=== PATIENT | female | born 1940 | race Caucasian/White ===

== ENCOUNTER 2024-02-21 09:08 | Inpatient (IN) | payer MEDICARE, SELFPAY ==
[2024-02-20 17:56] VITALS: BP 135/95
[2024-02-20 18:00] VITALS: BP 138/95
[2024-02-20 18:03] VITALS: BMI 22.3
[2024-02-20 18:21] LABS: % Basophils 0.2 % (0-2); % Eosinophils 0.5 % (0-6); % Immature Granulocytes 0.4 % (0-0.5); % Lymphocytes 15.3 % (20.5-51.1); % Monocytes 4.6 % (1.7-9.3); Absolute Lymphocytes 1.3 10^3/uL (1.2-3.4); Absolute Monocytes 0.4 10^3/uL (0.1-0.6); Absolute Neutrophils 6.7 10^3/uL (1.4-6.5); Hematocrit 31.5 % (37.0-47.0); Hemoglobin 10.8 g/dL (12.0-16.0); Mean Corp Hgb Conc. 34.3 g/dL (33.0-37.0); Mean Corpuscular Hgb 29.2 pg (27.0-31.0); Mean Corpuscular Volume 85.1 fL (81.0-99.0); Mean Platelet Volume 8.9 fL (7.4-10.4); Nucleated Red Blood Cells % 0 %; Platelet Count 304 10^3/uL (130-400); Red Cell Dist. Width 15.2 % (11.5-14.5); White Blood Cell Count 8.5 10^3/uL (4.8-10.8)
--- NOTE | 2024-02-20 18:43 | ED.GENMED ---
History of Present Illness
General
Chief Complaint: Fatigue
Source: patient
Exam Limitations: none
Time Seen by Provider: 02/20/24 18:27
History of Present Illness
History of Present Illness:
83-year-old female presents from jail[facility]hab facility for progressively worsening weakness. This has been worsening over the past month. She was initially at her home where she lives with her and was walking independently but
found her self to be falling multiple times. She fell 3 different times and was eventually admitted to [facility]. No specific diagnosis was made for her generalized weakness but she was sent to rehab. Since being at rehab about 2 weeks
ago, she notes that her weakness has gotten worse. She denies fever headache chest pain or shortness of breath. No urinary symptoms. No abdominal pain or vomiting. She does note decreased appetite. She denies any unilateral weakness. No other
complaints at this time
Phy Exam
Physical Exam
Physical Exam:
General: Cachectic appearing female no acute respiratory distress
HEENT: Normal cephalic atraumatic
Heart: Regular rate and rhythm
Lungs: Clear no wheeze
Abdomen is soft nontender nondistended no guarding or rebound
Extremities: No cyanosis or edema
Neurologic exam: Alert no facial asymmetry. Oriented x 3. No unilateral.
Course
Orders/Labs/Results
Orders:
Orders
02/20/24 18:13
Electrocardiogram (*1) Urgent
Reason for Study: Fatigue / Weakness
02/20/24 18:14
EKG- Treatment ONCE
02/20/24 18:16
CMP [Comprehensive Metabolic Panel] Urgent
Complete Blood Count/With Diff Urgent
02/20/24 18:56
Urinalysis Reflex To Culture Urgent
Date Specimen was Collected: 02/20/24
Time Specimen was Collected: 18:53
Urine Microscopic Reflex Cult Urgent
Urine Culture Urgent
RODOLFO Source: U
Specimen Description:
Date Specimen was Collected: 02/20/24
Time Specimen was Collected: 18:53
02/20/24 19:43
CR Chest - 2 Views Urgent
Comment:
Reason For Exam: weakness
02/20/24 20:42
CefTRIAXone [Rocephin] 1,000 mg IV NOW STA
Abnormal Lab Results
02/20/24 02/20/24
18:16 18:56
RBC 3.70 L 10^6/uL
(4.20-5.40)
Hgb 10.8 L g/dL
(12.0-16.0)
Hct 31.5 L %
(37.0-47.0)
RDW 15.2 H %
(11.5-14.5)
Absolute Neuts (auto) 6.7 H 10^3/uL
(1.4-6.5)
Neutrophils % 79.0 H %
(42.2-75.2)
Lymphocytes % 15.3 L %
(20.5-51.1)
Sodium 134 L mmol/L
(135-145)
Creatinine 0.4 L mg/dL
(0.6-1.0)
Calcium 7.9 L mg/dl
(8.4-10.2)
AST 44 H U/L
(14-36)
Total Protein 5.5 L g/dl
(6.3-8.2)
Albumin 1.5 L g/dl
(3.5-5.0)
Urine Nitrite (Reflex) Positive A
(Negative)
Leukocyte Esterase Rfl Trace A
(Negative)
Urine WBC (Reflex) 16-20 A /HPF
(0-5)
Urine Bacteria (Reflex) Moderate A
(Negative)
02/20/24 18:16
02/20/24 18:16
Vital Signs
Initial and Last Documented VS:
Initial Vital Signs
Temp Pulse Resp BP Pulse Ox
97.5 F 97 17 135/95 93
02/20/24 17:56 02/20/24 17:56 02/20/24 17:56 02/20/24 17:56 02/20/24 17:56
Last Documented Vital Signs
Temp Pulse Resp BP Pulse Ox
97.5 F 94 21 138/95 92
02/20/24 17:56 02/20/24 18:45 02/20/24 18:45 02/20/24 18:00 02/20/24 18:45
MDM/Problems Addressed
Differential Diagnosis Includes:
Generalized weakness. Consider anemia versus electrolyte abnormality versus general deconditioning versus volume depletion. No unilateral findings suggest stroke
Will check labs and urine.
*Critical Care Note
Total Time (30-74mins, 75-104mins- exclusive of procedures): Not Applicable
Update Note
Update Note:
Urinalysis nitrite positive with bacteria. Suspect UTI based off urinalysis. Cultures pending. Albumin is 1.5. Patient is here with progressive weakness. This is getting worse since being at rehab facility. Request for records were sent to
outside hospital. Discussed with emergency room attending. Will admit to hospital. Rocephin ordered for UTI
ED Attending Note
-
Portions of this chart may have been created with voice recognition software.� Occasional wrong word or��sound alike� substitutions may have occurred due to the inherent limitations of voice recognition software.
Discharge Plan
Departure
Patient Disposition: Admit
Date of Disposition: 02/20/24
Time of Disposition: 21:02
Admit to: Med/Surg
Presentation/result/management discussed w/ accepting MD/DO: Hospitalist
Discharge Problem:
Acute UTI, Generalized weakness
Referrals:
UNKNOWN - PT DOES,NOT KNOW [Family Provider] -
Interventions
Interventions:
*General Assessment Last Done: 02/20/24 18:04
*Neglect/Abuse Screening Last Done: 02/20/24 18:04
Discharge Date and Time
Print Language: TUNISIAN
[2024-02-20 18:45] LABS: ALT (SGPT) 16 U/L (0-35); AST (SGOT) 44 U/L (14-36); Albumin 1.5 g/dl (3.5-5.0); Alkaline Phosphatase 84 U/L (38-126); Blood Urea Nitrogen 17 mg/dl (7-17); Calcium 7.9 mg/dl (8.4-10.2); Carbon Dioxide 27 mmol/L (22-30); Chloride 104 mmol/L (98-107); Estimated Creatinine Clearance 58 ml/min; Glucose 80 mg/dl (70-99); Potassium 3.8 mmol/L (3.5-5.1); Sodium 134 mmol/L (135-145); Total Bilirubin 0.4 mg/dl (0.2-1.3); Total Protein 5.5 g/dl (6.3-8.2); eGFR > 60.00
[2024-02-20 19:00] VITALS: BP 150/95
[2024-02-20 19:04] LABS: Urine Albumin Trace (Neg - Trace); Urine Bilirubin Negative (Negative); Urine Character Clear (Clear); Urine Color Yellow; Urine Glucose Negative (Negative); Urine Ketone Negative (Negative); Urine Leukocyte Trace (Negative); Urine Nitrite Positive (Negative); Urine Occult Blood Negative (Negative); Urine Specific Gravity 1.015 (<1.030); Urine Urobilinogen Negative (Neg - 1+)
[2024-02-20 19:13] LABS: Urine Bacteria Moderate (Negative); Urine Red Blood Cell 0-2 /HPF (0-2); Urine White Cell 16-20 /HPF (0-5)
[2024-02-20 20:00] VITALS: BP 128/70
[2024-02-20 21:00] VITALS: BP 127/81
[2024-02-20] MEDS: ROCEPHIN 1000 MG IV (21:15)
[2024-02-20 22:00] VITALS: BP 117/69
--- NOTE | 2024-02-20 22:42 | HPS.HSE ---
Addendum entered and electronically signed by Edison Tse MD 02/20/24 23:26:
Received notification from nurse that patient has a wet cough after taking small sips of water. She failed swallow testing. NPO. Check speech and swallow evaluation. COVID testing negative. Possible aspiration pneumonia and will broaden
antibiotics to ceftriaxone/azithromycin.
Original Note:
Family Physician
-
Family Physician: Rich Plascencia, DO
Chief Complaint
-
weakness
History of Present Illness
83-year-old female past medical history of hypothyroidism presenting from [facility] facility for progressively worsening weakness. Weakness has been worsening over the past month.
She was initially at her home where she lives with her and was walking dependently but found herself to be falling multiple times. She fell 3 times and was eventually admitted to [facility]. She states that she had a CT head at that
time that showed superficial scalp bleeding and was recommended to have another CT scan of the head in May. No specific diagnosis was made and she was sent to rehab. Since being admitted to rehab 2 weeks ago she notes that her weakness is
gotten worse.
She does have increased urinary frequency over the past week. Denies any pain with urination. She has also been having loose stools for the past few weeks up to 4 times a day. Does have some rectal discomfort with wiping. She denies fever,
headache, chest pain, shortness of breath, cough. No abdominal pain or vomiting. She does have decreased appetite. She denies any unilateral weakness. Denies any difficulty swallow or pain with swallowing.
Medical History
Past Medical History
Past Medical History: Reports Hypothyroidism
Past Surgical History: Reports None
Social History
Tobacco: Non-smoker
Alcohol: None
Drug: None
Family History
Family History: Not pertinent
Allergies / Home Medications
Allergies reflects when Allergies were last updated in [employer].
Home Medications with original date entered in [employer]
Allergy/Medication List:
Allergies
Allergy/AdvReac Type Severity Reaction Status Date / Time
No Known Allergies Allergy Verified 02/20/24 18:03
Home Medications
acetaminophen 325 mg tablet 650 mg PO Q6HPRN PRN mild pain/temp>100.4 02/20/24
bisacodyl 10 mg rectal suppository (Dulcolax (bisacodyl)) 10 mg ME DAILYPRN PRN constipation 02/20/24
ergocalciferol (vitamin D2) 1,250 mcg (50,000 unit) capsule 1,250 mcg PO FR 02/20/24
levothyroxine 50 mcg tablet 50 mcg PO DAILY 02/20/24
loperamide 2 mg tablet (Imodium A-D) 2 mg PO Q6HPRN PRN diarrhea 02/20/24
pantoprazole 40 mg tablet,delayed release 40 mg PO BID 02/20/24
polyethylene glycol 3350 17 gram oral powder packet (Miralax) 17 g PO DAILYPRN PRN constipation 02/20/24
selenium sulfide 1 % shampoo (Selsun Blue) 1 applic topical MOTH 02/20/24
therapeutic multivitamin 1 tab PO DAILY 02/20/24
Review of Systems
-
History Source: Patient
A 12 point ROS was completed and negative except as noted: Yes
Constitutional: Reports No Symptoms
EENT: Reports No Symptoms
Respiratory: Reports No Symptoms
Cardiac: Reports No Symptoms
Abdomen/GI: Reports No Symptoms
: Reports No Symptoms
Musculoskeletal: Reports No Symptoms
Skin: Reports No Symptoms
Neurological: Reports No Symptoms
Endocrine: Reports No Symptoms
Hematologic/Lymphatic: Reports No Symptoms
Psych: Reports No Symptoms
Physical Exam
Vital Signs
Vital Signs
Temp Pulse Resp BP Pulse Ox
97.5 F 94 30 117/69 92
02/20/24 17:56 02/20/24 22:15 02/20/24 22:15 02/20/24 22:00 02/20/24 22:15
Physical Exam
General: Well Developed, Well Nourished and No Apparent Distress
HEENT: NormoCephalic, Moist mucous membranes and Atraumatic
Respiratory: Clear
Cardiac: S1/S2 and Regular Rhythm; No Murmur or Rub
GI: Soft, Non Tender, Non Distended and Normal Bowel Sounds; No Organomegaly
Rectal: Deferred by Provider
Musculoskeletal: No Clubbing, No Cyanosis and No Edema
Skin: No Rash
Neuro: Nonfocal/grossly intact
Laboratory Results
-
02/20/24 18:16
02/20/24 18:16
Laboratory Results
Total Bilirubin 0.4 mg/dl (0.2-1.3) 02/20/24 18:16
AST 44 U/L (14-36) H 02/20/24 18:16
ALT 16 U/L (0-35) 02/20/24 18:16
Alkaline Phosphatase 84 U/L (38-126) 02/20/24 18:16
Data Reviewed
-
Lab Data: Labs Reviewed by me
Old Records: Reviewed
Impression/Plan
-
IMPRESSION:
PLAN:
# Weakness secondary to UTI/failure to thrive secondary to poor oral intake/malnutrition versus volume loss from loose stools
-severe hypoalbuminemia on labs
-Chest x-ray appears to show right lower lobe infiltrate although no symptoms of pneumonia, report pending
-Check COVID
-check urine culture
-Ceftriaxone
# Loose stools possibly secondary to bowel regimen
-Hold bowel regimen
-Monitor for further loose stools/diarrhea and check stool studies if persistent
Hypothyroidism
-Check TSH
-Continue levothyroxine
GERD
-Continue Protonix
Presumably chronic anemia
-Hemoglobin 10.8
-No prior hemoglobin available
Full code
DVT prophylaxis�heparin
Regular diet
[2024-02-20 23:09] LABS: COVID-19 Antigen Negative (Negative)
[2024-02-21] VITALS: BP 120/69
[2024-02-21 01:11] VITALS: BMI 21.3
--- NOTE | 2024-02-21 01:15 | PTCARENOTE ---
Received pt from ED via stretcher. Pt pulled over onto bed, pt states too weak to bare weight to legs. AAOx3, VSS, no complaints of pain. Oriented to room, call arceo within reach
[2024-02-21 01:17] VITALS: BP 116/66
[2024-02-21] MEDS: ZITHROMAX INFUSION 250 IV (01:40)
[2024-02-21] MEDS: SYNTHROID PO (05:21)
[2024-02-21 06:32] LABS: % Basophils 0.2 % (0-2); % Eosinophils 0.2 % (0-6); % Immature Granulocytes 0.5 % (0-0.5); % Lymphocytes 10.2 % (20.5-51.1); % Monocytes 4.4 % (1.7-9.3); % Neutrophils 84.5 % (42.2-75.2); Absolute Immature Granulocytes 0.1 10^3/uL (0-0.05); Absolute Lymphocytes 1.2 10^3/uL (1.2-3.4); Absolute Monocytes 0.5 10^3/uL (0.1-0.6); Absolute Neutrophils 9.7 10^3/uL (1.4-6.5); Hematocrit 26.9 % (37.0-47.0); Hemoglobin 9.4 g/dL (12.0-16.0); Mean Corp Hgb Conc. 34.9 g/dL (33.0-37.0); Mean Platelet Volume 9.8 fL (7.4-10.4); Nucleated Red Blood Cells % 0 %; Platelet Count 290 10^3/uL (130-400); Red Blood Cell Count 3.24 10^6/uL (4.20-5.40); Red Cell Dist. Width 14.9 % (11.5-14.5); White Blood Cell Count 11.5 10^3/uL (4.8-10.8)
[2024-02-21 07:03] LABS: ALT (SGPT) 15 U/L (0-35); AST (SGOT) 42 U/L (14-36); Albumin 2.1 g/dl (3.5-5.0); Alkaline Phosphatase 82 U/L (38-126); Blood Urea Nitrogen 17 mg/dl (7-17); Calcium 7.8 mg/dl (8.4-10.2); Carbon Dioxide 26 mmol/L (22-30); Chloride 105 mmol/L (98-107); Estimated Creatinine Clearance 58 ml/min; Glucose 52 mg/dl (70-99); Potassium 3.2 mmol/L (3.5-5.1); Sodium 136 mmol/L (135-145); Total Bilirubin 0.3 mg/dl (0.2-1.3); Total Protein 5.2 g/dl (6.3-8.2); eGFR > 60.00
[2024-02-21 07:38] VITALS: BP 117/57
--- NOTE | 2024-02-21 08:32 | PTCARENOTE ---
Vini a critical BS of 52 from the lab, Notified the MD as there is no PRN for hypoglycemia and pt is NPO w/ a speech consult. No response yet from
[2024-02-21] MEDS: HEPARIN 5000 UNITS SC ×2 (08:53→20:58)
[2024-02-21] MEDS: SYNTHROID 50 MCG PO (08:58)
[2024-02-21] MEDS: THERAGRAN PO (09:05)
[2024-02-21] MEDS: PROTONIX PO (09:05)
[2024-02-21 09:09] LABS: Glucose - Point of Care 69 mg/dl (70-99)
--- NOTE | 2024-02-21 09:14 | PTOTSP ---
Dysphagia Evaluation
Patient has an unspecified pharyngeal and/or esophageal dysphagia (i.e., c/o stasis with solids, coughing/belching with thin liquids via straw.) Video swallow study warranted to further assess oral and pharyngeal stages of swallowing and develop
plan.
Patient also with signs of mild dysarthria (i.e., low volume of speech, weak cough, hypernasal, muffled quality) of unknown etiology which she reported was on-going prior to admission. Physician notified.
Recommend:
1. IDDSI Level 4 (puree), IDDSI Level 0 (thin) via CUP
2. Medications - crushed in puree
3. Strategies: supervision, upright to 90 degrees, small single sips/bites, avoid straw, upright for 30 minutes after PO
4. Video swallow study
5. Continued medical work up as to etiology of symptoms above
[2024-02-21] MEDS: DEXTROSE 50% SYRINGE 25 GRAMS IV (09:28)
[2024-02-21 10:00] LABS: Glucose - Point of Care 146 mg/dl (70-99)
[2024-02-21] MEDS: KCL ELIXIR 40 MEQ PO (11:24)
[2024-02-21 11:58] LABS: Iron < 20 ug/dl (37-170)
[2024-02-21 12:00] LABS: Glucose - Point of Care 98 mg/dl (70-99)
[2024-02-21 12:06] LABS: Total Iron Binding Capacity 136 ug/dl (265-497)
[2024-02-21 13:34] VITALS: BMI 21.3
[2024-02-21 15:16] VITALS: BP 105/56
[2024-02-21 15:24] LABS: Glucose - Point of Care 108 mg/dl (70-99)
--- NOTE | 2024-02-21 15:53 | W.PN.HOSP.TC ---
Today's Communication/Plan
-
See plan
Assessment / Plan
Assessment / Plan
Impression:
83 years old female presented with failure to thrive including generalized weakness poor appetite and oral intake progressive weight loss
Suspected UTI
Bilateral right greater than left pleural effusion small to moderate on the right
Suspected aspiration syndrome/pneumonia
Hypokalemia
Loose stools reported on admission.
Conditions prior to admission:
Recent hospitalization to [facility] with unremarkable workup
Hypothyroidism with elevated TSH.
GERD.
Chronic normocytic anemia.
Suspected dementia
Plan:
Failure to thrive with low oral intake, poor appetite, significant malnutrition with BMI of 21.
Patient offers no specific complaint other than generalized fatigue and weakness and poor oral intake.
Will order CT scan of the chest abdomen and pelvis with contrast to evaluate for occult malignancy
Chronic anemia
Stable hemoglobin with no evidence of acute blood loss
Heme check stool.
Check iron/B12 levels
Concern for UTI, abnormal urinalysis, although does not offer specific complaint
Mild leukocytosis at 11.5.
Urinalysis consistent with pyuria
Continue empiric antibiotics pending cultures
Concern for aspiration pneumonia/pneumonitis
Speech and swallow evaluation with no overt aspiration.
Diet has been advanced with aspiration precautions
Will check VSE.
Check CT head to rule out for CVA as a cause for possible aspiration.
Hypothyroidism on replacement with mildly elevated TSH
Increase levothyroxine from 50 to 75 mcg.
Follow-up with [facility] in 6 to 8 weeks.
Physical therapy evaluation
Nutrition consult
Discussed with patient nephew on 02/20.
Anticipated Discharge: > 48 hours
Subjective/Interval History
-
Date of Service: February 21, 2024
Objective Data
-
Labs:
Laboratory Results
02/21/24
05:09
WBC 11.5 H
Hgb 9.4 L
Hct 26.9 L
Plt Count 290
Sodium 136
Potassium 3.2 L
Chloride 105
Carbon Dioxide 26
BUN 17
Creatinine 0.3 L
Glucose 52 L*
Calcium 7.8 L
Total Bilirubin 0.3
AST 42 H
ALT 15
Alkaline Phosphatase 82
Vital Signs:
Vital Signs
Temp Pulse Resp BP Pulse Ox
98.1 F 73 18 105/56 94
02/21/24 15:16 02/21/24 15:16 02/21/24 15:16 02/21/24 15:16 02/21/24 15:16
I&O
02/20/24 02/21/24 02/22/24
06:59 06:59 06:59
Output Total 80 / 80
Balance -80 / -80
Physical Exam
-
General: Well Developed and No Apparent Distress
HEENT: Normocephalic, Atraumatic and Moist Mucous Membranes
Respiratory: Clear to Auscultation
Cardiac: Regular Rhythm and S1/S2; Negative Murmur, Rub or Gallop
GI: Soft, Nontender, Nondistended and Normal Bowel Sounds; Negative Organomegaly
Rectal: Deferred by Provider
Musculoskeletal: No Clubbing, No Cyanosis and No Edema
Skin: Negative Rash
Neuro: Nonfocal/Grossly Intact
--- NOTE | 2024-02-21 16:42 | CM ---
Alert awake patient who is short term at [facility]. Spoke with [facility] he said she can return and she will probably be changed to halfway. She is assisted in all activates of daily living.She said she is non ambulatory and
will need ambulance to return to [facility] at home unsure of [facility] LM with SNF
PCP Dr Plascencia
PLAN Return to [facility] report [phone] fax [phone]
[2024-02-21] MEDS: STERILE WATER FOR INJECTION 10 ML IV (20:57)
[2024-02-21] MEDS: ROCEPHIN 1000 MG IV (20:58)
[2024-02-21] MEDS: PROTONIX 40 MG PO (20:58)
[2024-02-21 23:44] VITALS: BP 111/52
[2024-02-22] MEDS: ZITHROMAX INFUSION 250 IV (02:52)
[2024-02-22 03:05] LABS: Glucose - Point of Care 83 mg/dl (70-99)
[2024-02-22] MEDS: SYNTHROID 75 MCG PO (06:00)
[2024-02-22 07:46] VITALS: BP 101/45
[2024-02-22] MEDS: THERAGRAN PO (08:45)
[2024-02-22] MEDS: PROTONIX PO (08:45)
[2024-02-22] MEDS: HEPARIN 5000 UNITS SC ×2 (08:52→20:57)
[2024-02-22 08:58] LABS: % Basophils 0.1 % (0-2); % Eosinophils 0.8 % (0-6); % Immature Granulocytes 0.7 % (0-0.5); % Lymphocytes 16.5 % (20.5-51.1); % Monocytes 6.6 % (1.7-9.3); % Neutrophils 75.3 % (42.2-75.2); Absolute Eosinophils 0.1 10^3/uL (0-0.7); Absolute Immature Granulocytes 0.1 10^3/uL (0-0.05); Absolute Lymphocytes 1.2 10^3/uL (1.2-3.4); Absolute Monocytes 0.5 10^3/uL (0.1-0.6); Absolute Neutrophils 5.4 10^3/uL (1.4-6.5); Hematocrit 25.6 % (37.0-47.0); Hemoglobin 8.8 g/dL (12.0-16.0); Mean Corp Hgb Conc. 34.4 g/dL (33.0-37.0); Mean Corpuscular Hgb 28.7 pg (27.0-31.0); Mean Corpuscular Volume 83.4 fL (81.0-99.0); Mean Platelet Volume 9.5 fL (7.4-10.4); Nucleated Red Blood Cells % 0 %; Platelet Count 267 10^3/uL (130-400); Red Blood Cell Count 3.07 10^6/uL (4.20-5.40); Red Cell Dist. Width 15.1 % (11.5-14.5); White Blood Cell Count 7.2 10^3/uL (4.8-10.8)
[2024-02-22 10:39] LABS: Blood Urea Nitrogen 18 mg/dl (7-17); Calcium 7.5 mg/dl (8.4-10.2); Carbon Dioxide 27 mmol/L (22-30); Chloride 107 mmol/L (98-107); Estimated Creatinine Clearance 58 ml/min; Glucose 56 mg/dl (70-99); Potassium 3.5 mmol/L (3.5-5.1); Sodium 136 mmol/L (135-145); eGFR > 60.00
[2024-02-22 13:36] VITALS: BP 132/100; BP_SYST 80
[2024-02-22 13:58] VITALS: BP 107/54
--- NOTE | 2024-02-22 14:05 | PN.CDI ---
CDI
- -
CDI:
Physician Documentation Request
Admit Date: 02/21/24 09:08
Dear Doctor Kevyn,
Please review the following and provide your response in the progress notes.
Clinical Indicators:
PN, 02/20
#Failure to thrive with low oral intake, poor appetite,
#...significant malnutrition with BMI of 21.
Government Professor, 02/20
#CBW: 120 lbs 6.4 oz BMI 21.3 normal range 02/20.
#...During visit RD able to visulize protrusion of clavical, apparent ribs, quad
#...and calf muscle wasting, muscle loss over Interosseous,
#...temporal area sunken in, orbital area sunken in.
#With observed muscle and fat wasting pt meets
#...AND/ASPEN criteria for moderate protein calorie malnutrition of chronic illness.
Based on the above and your clinical assessment, please provide additional specificity regarding the severity of the malnutrition:
Moderate Protein Calorie Malnutrition of chronic illness
Malnutrition
Other (please specify)
Huger Criteria (ACP Hospitalist 2017)
2 or more criteria must be present for either
non severe or severe malnutrition
Note that the criteria differs related to the
presence of an acute or chronic illness
Chronic Illness
Energy Intake Non Severe: <75% for >1 month
Severe: <75% for >1 month
Weight Loss Non Severe: 5% over 1 month
7.5% over 3 months
10% over 6 months
20% over 1 year
Severe: >5% over 1 month
>7.5% over 3 months
>10% over 6 months
>20% over 1 year
Body Fat Non Severe: Mild Loss
Severe: Severe Loss
Muscle Mass Non Severe: Mild Loss
Severe: Severe Loss
Use of terms such as suspected, likely, concern for, or probable (associated with a specific diagnosis that is being evaluated, monitored, or treated as if it exists) are acceptable and can be coded in the inpatient setting, when documented at the
time of discharge.
Thank you,
Anisha Mcconnell RN BSN CCDS
CDI Specialist
please contact via tiger text
Please use your independent medical judgment in providing your response.
--- NOTE | 2024-02-22 14:11 | PN.CDI ---
CDI
- -
CDI:
Physician Documentation Request
Admit Date: 02/21/24 09:08
Dear Doctor Kevyn,
Please review the following and provide your response in the progress notes.
Clinical Indicators:
Selected Entries
02/21/24
01:55
Pressure injury stage [Present on admission Sacrum] Stage 3
Duplicate Maker, 02/20
#Skin: stage 3 sacrum.
Physician documentation of the type and location of wounds is required for compliant documentation. Based on the above clinical findings and your assessment, please provide the following in your progress note:
Yes, stage 3 sacrum pressure injury, POA
No, stage 3 pressure injury
Other(please specify)
1. Location of the ulcer/wound, including laterality.
2. Type (etiology) of ulcer/wound:
- Diabetic ulcer
- Arterial (ischemic) ulcer
- Traumatic wound
- Venous stasis ulcer
- Pressure (decubitus) ulcer
- Non-healing surgical wound
3. If a pressure ulcer, please also include the stage* of the ulcer:
- Stage 1 - Skin intact, non-blanchable redness
- Stage 2 - Partial thickness loss of dermis, includes intact or open blister
- Stage 3 - Full thickness tissue not including bone, tendon or muscle
- Stage 4 - Full thickness tissue loss, including exposed bone, tendon or muscle
Use of terms such as suspected, likely, concern for, or probable (associated with a specific diagnosis that is being evaluated, monitored, or treated as if it exists) are acceptable and can be coded in the inpatient setting, when documented at the
time of discharge.
Thank you,
Anisha Mcconnell RN BSN CCDS
CDI Specialist
please contact viat tiger text
Please use your independent medical judgment in providing your response.
*Source: National Pressure Ulcer Advisory Panel (NPUAP)
[2024-02-22 14:18] LABS: Body Fluid pH 7.48
[2024-02-22 14:20] LABS: Body Fluid Mononuclear 87.9 %; Body Fluid Polymorphonuclear 12.1 %; Body Fluid WBC 132 /CUMM
--- NOTE | 2024-02-22 14:25 | CON.GI ---
Medical History
Chief Complaint / HPI
Chief Complaint: Generalized weakness
History of Present Illness:
Patient is a 83-year-old female with past medical history of hypothyroidism presenting from [facility] with progressive weakness. Patient mentions dysphagia starting few months ago which is both to solids and liquids. She feels as if food gets stuck in
midesophagus. She has had decreased appetite and oral intake during past months but has not noticed significant weight loss. Mentions early satiety. Also complains of loose stools for the past 1-2 months, sometimes up to 6 times a day. Thinks she
has seen bright red blood in stool 1 or 2 times about 2 to 3 weeks ago. She does feel lightheaded since 2 to 3 weeks ago and has fell a couple of times during the past month.
Denies any abd pain, nausea, vomiting, fever/chills, hematemesis and melena. Denies chest pain or shortness of breath. Has occasional heartburn but does not take any medications for it. Patient has noticed increased urinary frequency during the
past week but no hematuria. Prior to coming to , she was admitted to [facility] for a week due to weakness and falls, and also another week at [facility], which workup was inconclusive.
Past Medical History
Past Medical History: Hypothyroidism
Past Surgical History: None
Social History
Tobacco: Non-Smoker
Alcohol: None
Drug: None
Family History
Family History: Reviewed & Not Pertinent
Allergies / Home Medications
Allergy/AdvReac Type Severity Reaction Status Date / Time
No Known Allergies Allergy Verified 02/20/24 18:03
�Medication �Instructions �Recorded
acetaminophen 325 mg tablet 650 mg PO Q6HPRN PRN mild 02/20/24
pain/temp>100.4
bisacodyl 10 mg rectal suppository 10 mg KS DAILYPRN PRN constipation 02/20/24
(Dulcolax (bisacodyl))
ergocalciferol (vitamin D2) 1,250 1,250 mcg PO FR Supplement 02/20/24
mcg (50,000 unit) capsule
levothyroxine 50 mcg tablet 50 mcg PO DAILY Thyroid 02/20/24
loperamide 2 mg tablet (Imodium 2 mg PO Q6HPRN PRN diarrhea 02/20/24
A-D)
pantoprazole 40 mg tablet,delayed 40 mg PO BID Gastrointestinal Issue 02/20/24
release
polyethylene glycol 3350 17 gram 17 g PO DAILYPRN PRN constipation 02/20/24
oral powder packet (Miralax)
selenium sulfide 1 % shampoo 1 applic topical MOTH Skin Issues 02/20/24
(Selsun Blue)
therapeutic multivitamin 1 tab PO DAILY Supplement 02/20/24
Review of Systems
-
History Source: Patient
Constitutional: Reports Fatigue
EENT: Reports Other (Difficulty swallowing)
Abdomen/GI: Reports Diarrhea and Anorexia; Denies Abdominal Pain, Nausea or Vomiting
: Reports Frequency
Neurological: Reports Other (Lightheadedness)
Vital Signs
Temp Pulse Resp BP Pulse Ox
97.7 F 78 16 107/54 93
02/22/24 13:36 02/22/24 13:58 02/22/24 13:58 02/22/24 13:58 02/22/24 13:36
Physical Exam
Exam
General: No Apparent Distress, Poor Appetite and Other (Appears malnourished)
HEENT: Anicteric
Respiratory: Clear
Cardiac: S1/S2 and Regular Rhythm
GI: Soft, Non Tender, Non Distended and Normal Bowel Sounds
Skin: Warm and Dry
Neuro: Awake, Alert, Oriented and AO x 3
Results
WBC 7.2 10^3/uL (4.8-10.8) 02/22/24 07:46
Hgb 8.8 g/dL (12.0-16.0) L 02/22/24 07:46
Hct 25.6 % (37.0-47.0) L 02/22/24 07:46
MCV 83.4 fL (81.0-99.0) 02/22/24 07:46
Plt Count 267 10^3/uL (130-400) 02/22/24 07:46
Absolute Neuts (auto) 5.4 10^3/uL (1.4-6.5) 02/22/24 07:46
Sodium 136 mmol/L (135-145) 02/22/24 07:47
Potassium 3.5 mmol/L (3.5-5.1) 02/22/24 07:47
Chloride 107 mmol/L (98-107) 02/22/24 07:47
Carbon Dioxide 27 mmol/L (22-30) 02/22/24 07:47
BUN 18 mg/dl (7-17) H 02/22/24 07:47
Creatinine 0.4 mg/dL (0.6-1.0) L 02/22/24 07:47
Calcium 7.5 mg/dl (8.4-10.2) L 02/22/24 07:47
Total Bilirubin 0.3 mg/dl (0.2-1.3) 02/21/24 05:09
AST 42 U/L (14-36) H 02/21/24 05:09
ALT 15 U/L (0-35) 02/21/24 05:09
Alkaline Phosphatase 82 U/L (38-126) 02/21/24 05:09
Diagnostic Image Results:
There is severe diffuse subcutaneous edema throughout the chest abdomen and pelvis.
Moderate right pleural effusion and small left pleural effusion. Adjacent dependent atelectasis in the posterior lungs.
Large amount of ascites throughout the abdomen and pelvis.
Suggestion of increased enhancement and slight thickening of bowel loops diffusely, likely on the basis of diffuse surrounding edema/ascites, although there could also be a component of enteritis. No convincing evidence for bowel obstruction. No
evidence of free intraperitoneal air.
Prior GI Procedures:
EGD:
Colonoscopy:
Assessment / Plan
-
Patient is a 83-year-old female with past medical history of hypothyroidism presenting from SNF with progressive weakness, difficulty swallowing and diarrhea for the past few months. Last bowel movement was last night which was loose.
CT shows large amount of ascites throughout the abdomen and pelvis and increased enhancement and slight thickening of bowel loops diffusely. Also had pleural effusion. Thoracentesis was done today yielding 500 cc of clear yellow pleural fluid .
Patient denies any history of cardiac or renal diseases. Echo will be done today to check for possible CHF.
#Recommendations
Hemoglobin has dropped from 10.8 to 8.8 during the past 24 hours. Patient is hemodynamically stable at this time.
Paracentesis and fluid studies ordered.
Heme stool already ordered
VSE ordered by primary team
Will review with Dr. Perez regarding possible endo/colonoscopy
Will check INR
Continue to monitor h/h and vital signs for any acute worsening
-
-
Thank you for consultation and allowing me to participate in the patient's care. Please call the implementation consultant GI physician during the after hours with any questions or concerns.
[2024-02-22 14:29] LABS: Body Fluid Second Tech RLT
[2024-02-22 14:30] LABS: Body Fluid Albumin < 1.0 g/dl; Body Fluid LDH 103 U/L; Body Fluid Protein 2.2 g/dl
--- NOTE | 2024-02-22 15:11 | W.PN.HOSP.TC ---
Today's Communication/Plan
-
Diagnostic and therapeutic thoracentesis
Wean off oxygen.
GI evaluation for delayed esophageal passage as well as chronic anemia, anasarca/ascites.
Echocardiogram.
Continue antibiotics
Physical therapy evaluation
Assessment / Plan
Assessment / Plan
Impression:
83 years old female presented with failure to thrive including generalized weakness poor appetite and oral intake progressive weight loss
UTI
Bilateral right greater than left pleural effusion small to moderate on the right
Aspiration pneumonitis, less likely pneumonia
� Aspiration syndrome with silent aspiration VSE confirmed
Right pleural effusion.
�Status post right thoracentesis 02/21: 500 mL transudate
Anasarca (peripheral edema, right pleural effusion, ascites)
Hypokalemia
Conditions prior to admission:
Recent hospitalization to [facility] with unremarkable workup
Hypothyroidism with elevated TSH.
GERD.
Chronic normocytic anemia.
Suspected dementia
Plan:
Failure to thrive with low oral intake, poor appetite, significant malnutrition with BMI of 21.
Patient offers no specific complaint other than generalized fatigue and weakness and poor oral intake.
Aspiration syndrome with silent aspiration confirmed by bedside evaluation as well as VSE.
VSE with delayed esophageal phase.
Consult gastroenterology for further evaluation.
Follow-up chest x-ray after right thoracentesis with no evidence of infiltrate
Anasarca including peripheral edema, right pleural effusion (transudate), ascites with imaging.
CT scan of the chest abdomen and pelvis with no evidence of occult malignancy.
Further workup including diagnostic paracentesis
Follow cytology from right pleural effusion and paracentesis
Echocardiogram
Pro CHF BNP
Chronic anemia
Hemoglobin trending down with no evidence of acute blood loss
Iron studies consistent with mixed picture of iron deficiency and chronic inflammation
Heme check stool.
UTI without sepsis
Mild leukocytosis at 11.5.
Urinalysis consistent with pyuria
Urine culture with E. coli, sensitive
Antibiotics consolidated to Unasyn to cover UTI as well as possible aspiration pneumonia.
Hypothyroidism on replacement with mildly elevated TSH
Increase levothyroxine from 50 to 75 mcg.
Follow-up with TFT in 6 to 8 weeks.
Physical therapy evaluation
Nutrition consult
Discussed with patient nephew on 02/20.
Anticipated Discharge: > 48 hours
Subjective/Interval History
-
Date of Service: February 22, 2024
Objective Data
-
Labs:
Laboratory Results
02/22/24 02/22/24
07:46 07:47
WBC 7.2
Hgb 8.8 L
Hct 25.6 L
Plt Count 267
Sodium 136
Potassium 3.5
Chloride 107
Carbon Dioxide 27
BUN 18 H
Creatinine 0.4 L
Glucose 56 L
Calcium 7.5 L
Vital Signs:
Vital Signs
Temp Pulse Resp BP Pulse Ox
97.7 F 78 16 107/54 93
02/22/24 13:36 02/22/24 13:58 02/22/24 13:58 02/22/24 13:58 02/22/24 13:36
I&O
02/21/24 02/22/24 02/23/24
06:59 06:59 06:59
Intake Total 480 / 480
Output Total 80 / 80
Balance -80 / -80 480 / 480
Physical Exam
-
General: Well Developed and No Apparent Distress
HEENT: Normocephalic, Atraumatic and Moist Mucous Membranes
Respiratory: Clear to Auscultation
Cardiac: Regular Rhythm and S1/S2; Negative Murmur, Rub or Gallop
GI: Soft, Nontender, Nondistended and Normal Bowel Sounds; Negative Organomegaly
Rectal: Deferred by Provider
Musculoskeletal: No Clubbing, No Cyanosis and No Edema
Skin: Negative Rash
Neuro: Nonfocal/Grossly Intact
--- NOTE | 2024-02-22 15:42 | PTOTSP ---
Video Swallow Study
Summary: Patient with WFL-mild oral stage and moderate pharyngeal stage of swallowing. There was penetration with thin and mildly thick liquids and silent aspiration with thin liquids via cup with a cued chin tuck. Retention was noted in pharynx
(at most moderate-severe), worst with solids, and greatest on the base of tongue. Esophageal sweep revealed retained contrast after a liquid wash. Etiology of dysphagia is unknown.
Recommend:
1. IDDSI Level 4 (Puree), IDDSI Level 0 (Thin Liquids) via cup
2. Medications - crushed in puree if medically cleared to do so
3. Strategies: upright to 90 degrees, small single sips/bites, avoid straw, alternate bites with sips of liquids, multiple swallows (to clear food from throat), intermittent cough/swallow (to clear voice box)
4. Oral care 3x daily
5. Dysphagia therapy at the acute care level and after D/C.
6. Consider GI consult to further assess esophageal stage. (Patient may be at risk to aspirate liquid contrast with rapid ingestion based on this study.)
7. Continued medical work up as to etiology of dysphagia.
[2024-02-22 16:01] LABS: NT-proBNP 1680 pg/ml
[2024-02-22 16:12] VITALS: BP 104/67
[2024-02-22] MEDS: STERILE WATER FOR INJECTION 10 ML IV (20:57)
[2024-02-22] MEDS: ROCEPHIN 1000 MG IV (20:57)
[2024-02-22] MEDS: PROTONIX 40 MG PO (20:58)
[2024-02-22 23:07] VITALS: BP 116/72
[2024-02-23] VITALS (13 sets, daily range): BP systolic 82–142; BP diastolic 47–70; PULSE 70; O2SAT 99
[2024-02-23] MEDS: SYNTHROID PO (05:55)
[2024-02-23 06:16] LABS: PT 15.3 Sec (11.4-14.6)
[2024-02-23 06:19] LABS: % Basophils 0.3 % (0-2); % Eosinophils 0.9 % (0-6); % Immature Granulocytes 0.4 % (0-0.5); % Lymphocytes 16.8 % (20.5-51.1); % Monocytes 6.1 % (1.7-9.3); % Neutrophils 75.5 % (42.2-75.2); Absolute Eosinophils 0.1 10^3/uL (0-0.7); Absolute Lymphocytes 1.2 10^3/uL (1.2-3.4); Absolute Monocytes 0.4 10^3/uL (0.1-0.6); Absolute Neutrophils 5.3 10^3/uL (1.4-6.5); Hematocrit 26.2 % (37.0-47.0); Mean Corp Hgb Conc. 34.4 g/dL (33.0-37.0); Mean Corpuscular Hgb 29.5 pg (27.0-31.0); Mean Corpuscular Volume 85.9 fL (81.0-99.0); Mean Platelet Volume 9.6 fL (7.4-10.4); Nucleated Red Blood Cells % 0 %; Platelet Count 246 10^3/uL (130-400); Red Blood Cell Count 3.05 10^6/uL (4.20-5.40); Red Cell Dist. Width 15.2 % (11.5-14.5)
[2024-02-23] MEDS: PROTONIX PO (08:15)
[2024-02-23] MEDS: HEPARIN 5000 UNITS SC ×2 (08:15→19:43)
[2024-02-23] MEDS: THERAGRAN PO (08:15)
--- NOTE | 2024-02-23 09:54 | W.PN.GI.CBS2 ---
Today's Communication / Plan
-
Endoscopy
Assessment / Plan
-
Patient is a 83-year-old female with past medical history of hypothyroidism presenting from [facility] with progressive weakness, difficulty swallowing and diarrhea for the past few months.
CT shows large amount of ascites throughout the abdomen and pelvis and increased enhancement and slight thickening of bowel loops diffusely. Also had pleural effusion. Thoracentesis was done today yielding 500 cc of clear yellow fluid. Pleural
fluid gram stain negative. Patient denies any history of cardiac or renal diseases. Echo shows EF of 66%. VSE yesterday showed midesophageal retention and aspiration to thin liquids.
Patient is hemodynamically stable at this time.
Paracentesis done this a.m. Awaiting fluid studies to calculate SAAG.
Endoscopy to be done today.
Last bowel movement this am. Non-bloody.
Hgb slightly uptrended this am. Continue to monitor h/h and vital signs for any acute worsening
Subjective
Subjective
Date of Service: February 23, 2024
Objective
Data Reviewed
Laboratory Data:
Laboratory Results
02/23/24 05:33
02/22/24 07:47
Laboratory Results
PT 15.3 Sec (11.4-14.6) H 02/23/24 05:33
INR 1.20 02/23/24 05:33
Total Bilirubin 0.3 mg/dl (0.2-1.3) 02/21/24 05:09
AST 42 U/L (14-36) H 02/21/24 05:09
ALT 15 U/L (0-35) 02/21/24 05:09
Alkaline Phosphatase 82 U/L (38-126) 02/21/24 05:09
Vital Signs and I&O:
Vital Signs
Temp Pulse Resp BP Pulse Ox
98.4 F 82 16 113/68 98
02/23/24 07:26 02/23/24 08:50 02/23/24 08:50 02/23/24 08:50 02/23/24 08:50
I&O
02/22/24 02/23/24 02/24/24
06:59 06:59 06:59
Intake Total 480 / 480
Balance 480 / 480
Physical Exam
Physical Exam
HEENT: Anicteric
Cardiology: Normal Sinus Rhythm, S1 and S2
Pulmonary: Clear
GI: Soft, Distended, Non Tender and Other
Extremities: No Edema
[2024-02-23 10:36] LABS: Body Fluid Albumin 1.2 g/dl
--- NOTE | 2024-02-23 10:48 | PTCARENOTE ---
pt back from [facility] s/p Paracentesis. pt is AAO*3, Vss, room air. pt with band-aid on RLQ. call arceo within the reach. plan of care ongoing.
[2024-02-23 10:54] LABS: Body Fluid Mononuclear 89.1 %; Body Fluid Polymorphonuclear 10.9 %; Body Fluid WBC 332 /CUMM
[2024-02-23 11:17] LABS: Glucose - Point of Care 60 mg/dl (70-99)
[2024-02-23 11:18] LABS: Body Fluid Second Tech AMA
[2024-02-23 11:59] LABS: Glucose - Point of Care 127 mg/dl (70-99)
--- NOTE | 2024-02-23 12:04 | W.PN.UPDATE ---
Update Note
Progress Note Update
Patient had Glucose level of 60 pre EGD gave an amp of D 50, spoke to Dr. Donaldson he will switch her IVF to D 1/2 NSS, poor PO intake. also will get US with dopplers for new onset ascites and r/o cirrhosis
--- NOTE | 2024-02-23 13:09 | PTCARENOTE ---
pt back from GI lab s/p EGD. pt is AAO*3, Vss, 2L o2. pt is back on diet, pt is oriented to the room. call arceo within the reach, plan of care ongoing
--- NOTE | 2024-02-23 17:17 | W.PN.HOSP.TC ---
Today's Communication/Plan
-
Advance diet
Monitor for recurrent hypoglycemia.
Continue PPI
Continue antibiotics covering aspiration and UTI.
Physical therapy evaluation
Abdominal ultrasound with Doppler
Assessment / Plan
Assessment / Plan
Impression:
83 years old female presented with failure to thrive including generalized weakness poor appetite and oral intake progressive weight loss
UTI
Bilateral right greater than left pleural effusion small to moderate on the right
Aspiration pneumonitis, less likely pneumonia
� Aspiration syndrome with silent aspiration VSE confirmed
Right pleural effusion.
�Status post right thoracentesis 02/21: 500 mL transudate
Anasarca (peripheral edema, right pleural effusion, ascites)
Hypokalemia
Duodenal ulcers
Conditions prior to admission:
Recent hospitalization to [facility] with unremarkable workup
Hypothyroidism with elevated TSH.
GERD.
Chronic normocytic anemia.
Suspected dementia
Plan:
Failure to thrive with low oral intake, poor appetite, significant malnutrition with BMI of 21.
Patient offers no specific complaint other than generalized fatigue and weakness and poor oral intake.
Aspiration syndrome with silent aspiration confirmed by bedside evaluation as well as VSE.
VSE with delayed esophageal phase.
Consult gastroenterology for further evaluation.
Follow-up chest x-ray after right thoracentesis with no evidence of infiltrate
Further workup with EGD on 02/22 revealing multiple duodenal ulcers.
Continue PPI
ZEL? As outpatient, will need further workup with gastrin level, chromogranin A advanced hold PPI for 2 weeks.
Also noted with recurrent hypoglycemia.
Monitor oral intake. If with reasonable oral intake and recurrent hypoglycemia we will need workup for insulinoma as outpatient.
Chronic anemia
Hemoglobin trending down with no evidence of acute blood loss
Iron studies consistent with mixed picture of iron deficiency and chronic inflammation
Anasarca including peripheral edema, right pleural effusion (transudate), ascites with imaging.
CT scan of the chest abdomen and pelvis with no evidence of occult malignancy.
Diagnostic paracentesis 02/22 30cc SAAG 0.9. Lean away from portal hypertension or CHF. Check KIMMY
Follow cytology from right pleural effusion and paracentesis
Check abdominal ultrasound with Doppler for hepatic echotexture and further workup for ascites/portal hypertension.
Echocardiogram with preserved biventricular function, mild pulmonary hypertension could not explain ascites
Elevated pro CHF BNP, although no clinical evidence of decompensated CHF
UTI without sepsis
Mild leukocytosis at 11.5.
Urinalysis consistent with pyuria
Urine culture with E. coli, sensitive
Antibiotics consolidated to Unasyn to cover UTI as well as possible aspiration pneumonia.
Hypothyroidism on replacement with mildly elevated TSH
Increase levothyroxine from 50 to 75 mcg.
Follow-up with TFT in 6 to 8 weeks.
Physical therapy evaluation
Nutrition consult
Discussed with patient nephew on 02/20.
Anticipated Discharge: 24 - 48 hours
Subjective/Interval History
-
Date of Service: February 23, 2024
Objective Data
-
Labs:
Laboratory Results
02/23/24
05:33
WBC 7.0
Hgb 9.0 L
Hct 26.2 L
Plt Count 246
PT 15.3 H
INR 1.20
Vital Signs:
Vital Signs
Temp Pulse Resp BP Pulse Ox
98.7 F 69 20 142/70 99
02/23/24 14:49 02/23/24 14:49 02/23/24 14:49 02/23/24 14:49 02/23/24 14:49
I&O
02/22/24 02/23/24 02/24/24
06:59 06:59 06:59
Intake Total 480 / 480
Balance 480 / 480
Physical Exam
-
General: Well Developed and No Apparent Distress
HEENT: Normocephalic, Atraumatic and Moist Mucous Membranes
Respiratory: Clear to Auscultation
Cardiac: Regular Rhythm and S1/S2; Negative Murmur, Rub or Gallop
GI: Soft, Nontender, Nondistended and Normal Bowel Sounds; Negative Organomegaly
Rectal: Deferred by Provider
Musculoskeletal: No Clubbing, No Cyanosis and No Edema
Skin: Negative Rash
Neuro: Nonfocal/Grossly Intact
[2024-02-23] MEDS: STERILE WATER FOR INJECTION 10 ML IV (19:42)
[2024-02-23] MEDS: PROTONIX 40 MG PO (19:43)
[2024-02-23] MEDS: ROCEPHIN 1000 MG IV (19:43)
[2024-02-24] MEDS: SYNTHROID PO (06:01)
[2024-02-24 07:00] VITALS: BP 108/62
[2024-02-24 08:12] LABS: % Basophils 0.1 % (0-2); % Immature Granulocytes 0.7 % (0-0.5); % Lymphocytes 15.5 % (20.5-51.1); % Monocytes 6.4 % (1.7-9.3); % Neutrophils 76.3 % (42.2-75.2); Absolute Eosinophils 0.1 10^3/uL (0-0.7); Absolute Immature Granulocytes 0.1 10^3/uL (0-0.05); Absolute Monocytes 0.4 10^3/uL (0.1-0.6); Absolute Neutrophils 5.1 10^3/uL (1.4-6.5); Hematocrit 28.5 % (37.0-47.0); Hemoglobin 9.6 g/dL (12.0-16.0); Mean Corp Hgb Conc. 33.7 g/dL (33.0-37.0); Mean Corpuscular Hgb 28.7 pg (27.0-31.0); Mean Corpuscular Volume 85.1 fL (81.0-99.0); Mean Platelet Volume 9.3 fL (7.4-10.4); Nucleated Red Blood Cells % 0 %; Platelet Count 233 10^3/uL (130-400); Red Blood Cell Count 3.35 10^6/uL (4.20-5.40); Red Cell Dist. Width 15.5 % (11.5-14.5); White Blood Cell Count 6.7 10^3/uL (4.8-10.8)
--- NOTE | 2024-02-24 08:24 | WOUNDNOTE ---
WOC RN note: Patient admitted with UTI, weakness, failure to thrive, diarrhea, anasarca. s/p Thoracentesis 02/22/24. Patient admitted from SN[facility] rehab. She stated she has an air mattress at [facility]. She is .
See H&P for complete history.
PMH: falls, recent hospital stay at another hospital, hypothyroid, duodenal ulcers.
Wound Location and type/assessment: Patient admitted with: unstageable sacral pressure injury (stage 3 or 4) with yellow slough cover and local erythema. Heels blanchable mild red. Perineum MASD d/t diarrhea. Elbows blanchable mild red.
R lateral ankle with small dry pink stage 2 pressure injury. L lateral ankle blanchable persistent red.
Appetite: poor.
Pressure redistribution devices in place: Waffle air overlay. Patient assists with turning. Air chair cushion.
Plan: Patient incontinent of large loose brown stool. Jennifer care given and patient turned to L semi side lying position with help from MICHELLE Martinez. Sacral dressing changed. Protective foam applied to lateral ankles and heels. Heels off bed with air
chair cushion. Patient at risk of poor wound healing and potential for additional skin breakdown despite pressure injury prevention measures in place d/t overall medical condition, poor nutrition.
Will confirm orders with Dr. Bagley.
Care plan to be updated and will follow as needed. This movie writer is away next week, call CAITY White RN or CLAY Alamo RN if needed.
Recommend follow up at wound care center upon discharge.
[2024-02-24 08:38] LABS: Blood Urea Nitrogen 16 mg/dl (7-17); Calcium 7.7 mg/dl (8.4-10.2); Carbon Dioxide 25 mmol/L (22-30); Chloride 105 mmol/L (98-107); Estimated Creatinine Clearance 58 ml/min; Glucose 101 mg/dl (70-99); Potassium 3.2 mmol/L (3.5-5.1); Sodium 136 mmol/L (135-145); eGFR > 60.00
[2024-02-24 08:50] VITALS: BP 108/62; PULSE 78; O2SAT 93
--- NOTE | 2024-02-24 09:11 | PN.CDI ---
CDI
- -
CDI:
Physician Documentation Request
Admit Date: 02/21/24 09:08
Dear Doctor Chris,
Please review the following and provide your response in the progress notes.
Clinical Indicators:
EGD, 02/22
#Five non-bleeding duodenal ulcers with no stigmata of bleeding were
found in the first portion of the duodenum and in the second portion of
the duodenum. The largest lesion was 10 mm in largest dimension.
Please clarify which of the following accurately represents the likely acuity of the duodenal ulcers:
Acute
Acute on chronic
Chronic
Other
Use of terms such as suspected, likely, concern for, or probable (associated with a specific diagnosis that is being evaluated, monitored, or treated as if it exists) are acceptable and can be coded in the inpatient setting, when documented at the
time of discharge.
Thank you,
Anisha Mcconnell RN BSN CCDS
CDI Specialist
Please contact via tiger text
Please use your independent medical judgment in providing your response.
[2024-02-24] MEDS: HEPARIN 5000 UNITS SC ×2 (09:44→20:35)
[2024-02-24] MEDS: PROTONIX 40 MG PO ×2 (09:44→20:35)
[2024-02-24] MEDS: THERAGRAN 1 TABLET PO (09:44)
[2024-02-24] MEDS: DRISDOL (VITAMIN D2) 50000 UNITS PO (09:46)
[2024-02-24] MEDS: DESENEX/MITRAZOL/ZEASORB 1 APPLIC TOPICAL ×2 (10:01→20:36)
[2024-02-24] MEDS: KCL ELIXIR 40 MEQ PO (11:31)
--- NOTE | 2024-02-24 13:32 | W.PN.GI.CBS2 ---
Today's Communication / Plan
-
Continue diet as per speech with aspiration precaution
Continue PPI twice daily
Assessment / Plan
-
Impression
-- Failure to thrive/weight loss/oropharyngeal dysphagia
-- Multiple duodenal ulcer on EGD
-- Ascites
-- Pleural effusion
-- Anemia
-- Hypothyroidism
CT abd/ pel/ chest 02/20
IMPRESSION: There is severe diffuse subcutaneous edema throughout the chest abdomen and pelvis.
Moderate right pleural effusion and small left pleural effusion. Adjacent dependent atelectasis in the posterior lungs.
Large amount of ascites throughout the abdomen and pelvis.
Suggestion of increased enhancement and slight thickening of bowel loops diffusely, likely on the basis of diffuse surrounding edema/ascites, although there could also be a component of enteritis. No convincing evidence for bowel obstruction. No
evidence of free intraperitoneal air.
EGD 02/22
Impression: - Tortuous esophagus.
- Non-obstructing Schatzki ring.
- Small hiatal hernia.
- A single gastric polyp. Biopsied.
- Erythematous duodenopathy. Biopsied.
- Non-bleeding multiple duodenal ulcers with no
stigmata of bleeding. Biopsied.
- Biopsies were taken with a cold forceps for
Helicobacter pylori testing.
US abd with doppler 02/22
IMPRESSION:
Diminutive size of the liver, however it is otherwise morphologically normal without surface nodularity. No focal hepatic lesion. Hepatic veins demonstrate monophasic waveforms typically seen in the setting of cirrhosis.
Gallbladder sludge without sonographic evidence of acute cholecystitis.
Ascites and bilateral pleural effusions, better visualized on CT from 02/21/2024.
paracentesis - 50 cc fluid removed. Fluid analysis-SAAG < 1.1 high protein . neg SBP. cytology- no malignancy
plan
Initial CT abdomen/pelvis/chest imaging does not reveal any malignancy. Pancreas was normal. Noted to have multiple ulcers in EGD. Ultrasound abdomen with Doppler-possible liver cirrhosis based on hepatic vein waveforms. Patent portal veins.
Platelets normal. Liver test mildly elevated AST/low albumin. Normal ALT/alkaline phosphatase total bilirubin. Ascitic fluid analysis low SAG/high protein not compatible with portal hypertension. Fluid cytology negative for malignancy. Awaiting
echo
Continue diet as per speech with aspiration precaution
Continue PPI twice daily
If hypoglycemia persist further workup as per medical team
Total Time Spent with Patient (in minutes): 35
Subjective
Subjective
Date of Service: February 24, 2024
Denies any abdominal pain/nausea/vomiting. Tolerating diet
Objective
Data Reviewed
Laboratory Data:
Laboratory Results
02/24/24 07:46
02/24/24 07:46
Laboratory Results
PT 15.3 Sec (11.4-14.6) H 02/23/24 05:33
INR 1.20 02/23/24 05:33
Total Bilirubin 0.3 mg/dl (0.2-1.3) 02/21/24 05:09
AST 42 U/L (14-36) H 02/21/24 05:09
ALT 15 U/L (0-35) 02/21/24 05:09
Alkaline Phosphatase 82 U/L (38-126) 02/21/24 05:09
Vital Signs and I&O:
Vital Signs
Temp Pulse Resp BP Pulse Ox
97.5 F 78 20 108/62 93
02/24/24 07:00 02/24/24 07:00 02/24/24 07:00 02/24/24 07:00 02/24/24 07:00
I&O
02/23/24 02/24/24 02/25/24
06:59 06:59 06:59
Intake Total 480 / 480
Balance 480 / 480
Physical Exam
Physical Exam
GI: Soft, Non Distended and Non Tender
[2024-02-24 15:44] VITALS: BP 112/68
--- NOTE | 2024-02-24 15:54 | W.PN.HOSP.TC ---
Today's Communication/Plan
-
Continue antibiotics for aspiration
UTI through 02/26.
Continue PPI.
Continue diet with aspiration precautions
Physical therapy evaluation
Sacral wound care. Check x-ray with concern for osteomyelitis.
[facility]
Assessment / Plan
Assessment / Plan
Impression:
83 years old female presented with failure to thrive including generalized weakness poor appetite and oral intake progressive weight loss
UTI
Bilateral right greater than left pleural effusion small to moderate on the right
Aspiration pneumonitis, less likely pneumonia
� Aspiration syndrome with silent aspiration VSE confirmed
Right pleural effusion.
�Status post right thoracentesis 02/21: 500 mL transudate
Anasarca (peripheral edema, right pleural effusion, ascites)
Hypokalemia
Duodenal ulcers
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
Conditions prior to admission:
Recent hospitalization to [facility] with unremarkable workup
Hypothyroidism with elevated TSH.
GERD.
Chronic normocytic anemia.
Suspected dementia
Plan:
Failure to thrive with low oral intake, poor appetite, significant malnutrition with BMI of 21.
Patient offers no specific complaint other than generalized fatigue and weakness and poor oral intake.
Aspiration syndrome with silent aspiration confirmed by bedside evaluation as well as VSE.
VSE with delayed esophageal phase.
Consult gastroenterology for further evaluation.
Follow-up chest x-ray after right thoracentesis with no evidence of infiltrate
Further workup with EGD on 02/22 revealing multiple duodenal ulcers.
Continue PPI
ZEL? As outpatient, will need further workup with gastrin level, chromogranin A advanced hold PPI for 2 weeks.
Also noted with recurrent hypoglycemia.
Monitor oral intake. If with reasonable oral intake and recurrent hypoglycemia we will need workup for insulinoma as outpatient.
Chronic anemia
Hemoglobin trending down with no evidence of acute blood loss
Iron studies consistent with mixed picture of iron deficiency and chronic inflammation
Anasarca including peripheral edema, right pleural effusion (transudate), ascites with imaging.
CT scan of the chest abdomen and pelvis with no evidence of occult malignancy.
Diagnostic paracentesis 02/22 30cc SAAG 0.9 not consistent with portal hypertension or CHF. Check KIMMY for possible petrositis
Abdominal ultrasound with Doppler, findings consistent with normal hepatic echotexture, although Doppler eval might be consistent with portal hypertension '
Follow cytology from right pleural effusion and paracentesis
Echocardiogram with preserved biventricular function, mild pulmonary hypertension could not explain ascites
Elevated pro CHF BNP, although no clinical evidence of decompensated CHF
UTI without sepsis
Mild leukocytosis at 11.5.
Urinalysis consistent with pyuria
Urine culture with E. coli, sensitive
Antibiotics consolidated to Unasyn to cover UTI as well as possible aspiration pneumonia to complete additional 3 days through 02/26
Stage III-IV sacral pressure ulcer. Continue wound care
Check x-ray with concern for possible osteomyelitis.
Hypothyroidism on replacement with mildly elevated TSH
Increase levothyroxine from 50 to 75 mcg.
Follow-up with TFT in 6 to 8 weeks.
Physical therapy evaluation
Nutrition consult
Discussed with patient nephew on 02/20.
Anticipated Discharge: > 48 hours
Subjective/Interval History
-
Date of Service: February 24, 2024
Objective Data
-
Labs:
Laboratory Results
02/24/24
07:46
WBC 6.7
Hgb 9.6 L
Hct 28.5 L
Plt Count 233
Sodium 136
Potassium 3.2 L
Chloride 105
Carbon Dioxide 25
BUN 16
Creatinine 0.4 L
Glucose 101 H
Calcium 7.7 L
Vital Signs:
Vital Signs
Temp Pulse Resp BP Pulse Ox
98.6 F 87 18 112/68 96
02/24/24 15:44 02/24/24 15:44 02/24/24 15:44 02/24/24 15:44 02/24/24 15:44
I&O
02/23/24 02/24/24 02/25/24
06:59 06:59 06:59
Intake Total 480 / 480
Balance 480 / 480
Physical Exam
-
General: Well Developed and No Apparent Distress
HEENT: Normocephalic, Atraumatic and Moist Mucous Membranes
Respiratory: Clear to Auscultation
Cardiac: Regular Rhythm and S1/S2; Negative Murmur, Rub or Gallop
GI: Soft, Nontender, Nondistended and Normal Bowel Sounds; Negative Organomegaly
Rectal: Deferred by Provider
Musculoskeletal: No Clubbing, No Cyanosis and No Edema
Skin: Negative Rash
Neuro: Nonfocal/Grossly Intact
--- NOTE | 2024-02-24 17:06 | CM ---
Spoke with pt in room .
She said she wants to return to [facility] [place].
Spoke with [facility] he said she can return and she will probably be changed to [facility].
She is non ambulatory and will need ambulance to return to [facility]
IMM reviewed with pt IMM signed on chart.
PLAN Return to [facility] report [phone] fax [phone]
[2024-02-24] MEDS: STERILE WATER FOR INJECTION 10 ML IV (20:35)
[2024-02-24] MEDS: ROCEPHIN 1000 MG IV (20:35)
[2024-02-24 23:24] VITALS: BP 117/62
[2024-02-25] MEDS: SYNTHROID 75 MCG PO (05:40)
[2024-02-25 07:55] VITALS: BP 101/60
[2024-02-25 07:58] LABS: % Basophils 0.1 % (0-2); % Eosinophils 0.6 % (0-6); % Immature Granulocytes 0.5 % (0-0.5); % Lymphocytes 13.6 % (20.5-51.1); % Monocytes 6.1 % (1.7-9.3); % Neutrophils 79.1 % (42.2-75.2); Absolute Eosinophils 0.1 10^3/uL (0-0.7); Absolute Lymphocytes 1.1 10^3/uL (1.2-3.4); Absolute Monocytes 0.5 10^3/uL (0.1-0.6); Absolute Neutrophils 6.6 10^3/uL (1.4-6.5); Hematocrit 28.3 % (37.0-47.0); Hemoglobin 9.8 g/dL (12.0-16.0); Mean Corp Hgb Conc. 34.6 g/dL (33.0-37.0); Mean Corpuscular Volume 86.5 fL (81.0-99.0); Mean Platelet Volume 10.1 fL (7.4-10.4); Nucleated Red Blood Cells % 0 %; Platelet Count 229 10^3/uL (130-400); Red Blood Cell Count 3.27 10^6/uL (4.20-5.40); Red Cell Dist. Width 15.4 % (11.5-14.5); White Blood Cell Count 8.3 10^3/uL (4.8-10.8)
[2024-02-25] MEDS: THERAGRAN PO (09:30)
[2024-02-25] MEDS: PROTONIX PO (09:30)
[2024-02-25] MEDS: DESENEX/MITRAZOL/ZEASORB 1 APPLIC TOPICAL ×2 (09:30→20:40)
[2024-02-25] MEDS: HEPARIN 5000 UNITS SC ×2 (09:31→20:39)
[2024-02-25 09:51] LABS: Blood Urea Nitrogen 16 mg/dl (7-17); Calcium 7.7 mg/dl (8.4-10.2); Carbon Dioxide 25 mmol/L (22-30); Chloride 106 mmol/L (98-107); Estimated Creatinine Clearance 58 ml/min; Glucose 76 mg/dl (70-99); Potassium 3.6 mmol/L (3.5-5.1); Sodium 135 mmol/L (135-145); eGFR > 60.00
--- NOTE | 2024-02-25 11:33 | W.PN.GI.CBS2 ---
Today's Communication / Plan
-
continue current care
Assessment / Plan
-
Impression
-- Failure to thrive/RAJAN/ weight loss/oropharyngeal dysphagia
-- Multiple duodenal ulcer on EGD
-- Ascites
-- Pleural effusion
-- Anemia
-- Hypothyroidism
CT abd/ pel/ chest 02/20
IMPRESSION: There is severe diffuse subcutaneous edema throughout the chest abdomen and pelvis.
Moderate right pleural effusion and small left pleural effusion. Adjacent dependent atelectasis in the posterior lungs.
Large amount of ascites throughout the abdomen and pelvis.
Suggestion of increased enhancement and slight thickening of bowel loops diffusely, likely on the basis of diffuse surrounding edema/ascites, although there could also be a component of enteritis. No convincing evidence for bowel obstruction. No
evidence of free intraperitoneal air.
EGD 02/22
Impression: - Tortuous esophagus.
- Non-obstructing Schatzki ring.
- Small hiatal hernia.
- A single gastric polyp. Biopsied.
- Erythematous duodenopathy. Biopsied.
- Non-bleeding multiple duodenal ulcers with no
stigmata of bleeding. Biopsied.
- Biopsies were taken with a cold forceps for
Helicobacter pylori testing.
US abd with doppler 02/22
IMPRESSION:
Diminutive size of the liver, however it is otherwise morphologically normal without surface nodularity. No focal hepatic lesion. Hepatic veins demonstrate monophasic waveforms typically seen in the setting of cirrhosis.
Gallbladder sludge without sonographic evidence of acute cholecystitis.
Ascites and bilateral pleural effusions, better visualized on CT from 02/21/2024.
paracentesis - 50 cc fluid removed. Fluid analysis-SAAG < 1.1 high protein . neg SBP. cytology- no malignancy
plan
Initial CT abdomen/pelvis/chest imaging does not reveal any malignancy. Pancreas was normal. Noted to have multiple ulcers in EGD. Ultrasound abdomen with Doppler-possible liver cirrhosis based on hepatic vein waveforms. Patent portal veins.
Platelets normal. Liver test mildly elevated AST/low albumin. Normal ALT/alkaline phosphatase total bilirubin. Ascitic fluid analysis low SAG/high protein not compatible with portal hypertension. Fluid cytology negative for malignancy. Echo-
normal EF.
Continue diet as per speech with aspiration precaution
Continue PPI twice daily
If hypoglycemia persist further workup as per medical team
Medical team to discuss about goals of care with family. May benefit with appetite stimulant or psych eval
No further GI recommendation at this point. Will recommend follow-up as outpatient. will s/o
Total Time Spent with Patient (in minutes): 35
Subjective
Subjective
Date of Service: February 25, 2024
No GI complaints.
Objective
Data Reviewed
Laboratory Data:
Laboratory Results
02/25/24 06:35
02/25/24 06:35
Laboratory Results
PT 15.3 Sec (11.4-14.6) H 02/23/24 05:33
INR 1.20 02/23/24 05:33
Total Bilirubin 0.3 mg/dl (0.2-1.3) 02/21/24 05:09
AST 42 U/L (14-36) H 02/21/24 05:09
ALT 15 U/L (0-35) 02/21/24 05:09
Alkaline Phosphatase 82 U/L (38-126) 02/21/24 05:09
Vital Signs and I&O:
Vital Signs
Temp Pulse Resp BP Pulse Ox
97.4 F 80 16 101/60 94
02/25/24 07:55 02/25/24 07:55 02/25/24 07:55 02/25/24 07:55 02/25/24 08:00
I&O
02/24/24 02/25/24 02/26/24
06:59 06:59 06:59
Intake Total 480 / 480 600 / 600
Balance 480 / 480 600 / 600
Physical Exam
Physical Exam
GI: Soft, Non Distended and Non Tender
--- NOTE | 2024-02-25 12:13 | W.PN.HOSP.TC ---
Today's Communication/Plan
-
Continue Unasyn for aspiration and UTI through 02/27/24.
Continue PPI.
Continue diet with aspiration precautions
Physical therapy evaluation
Continue sacral wound care.
Eventually placement to alf facility hopefully early next week.
Appreciate GI
Assessment / Plan
Assessment / Plan
Physical Exam
General: Well Developed and No Apparent Distress
HEENT: Normocephalic, Atraumatic and Moist Mucous Membranes
Respiratory: Clear to Auscultation
Cardiac: Regular Rhythm and S1/S2; Negative Murmur, Rub or Gallop
GI: Soft, Nontender, Nondistended and Normal Bowel Sounds
Musculoskeletal: No Cyanosis and No Edema
Skin: Warm. Dry.
Neuro: Nonfocal/Grossly Intact
Psych: Drowsy
Assessment/Plan
Impression:
83 years old female presented with failure to thrive including generalized weakness poor appetite and oral intake progressive weight loss
UTI
Bilateral right greater than left pleural effusion small to moderate on the right
Aspiration pneumonitis, less likely pneumonia
� Aspiration syndrome with silent aspiration VSE confirmed
Right pleural effusion.
�Status post right thoracentesis 02/21: 500 mL transudate
Anasarca (peripheral edema, right pleural effusion, ascites)
Hypokalemia
Duodenal ulcers
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
Conditions prior to admission:
Recent hospitalization to [facility] with unremarkable workup
Hypothyroidism with elevated TSH.
GERD.
Chronic normocytic anemia.
Suspected dementia
Plan:
Failure to thrive with low oral intake, poor appetite, significant malnutrition with BMI of 21.
Patient offers no specific complaint other than generalized fatigue and weakness and poor oral intake.
Aspiration syndrome with silent aspiration confirmed by bedside evaluation as well as VSE.
VSE with delayed esophageal phase.
Consulted gastroenterology for further evaluation.
Follow-up chest x-ray after right thoracentesis with no evidence of infiltrate
Further workup with EGD on 02/22 revealing multiple duodenal ulcers.
Continue PPI
ZEL? As outpatient, will need further workup with gastrin level, chromogranin A advanced hold PPI for 2 weeks.
Also noted with recurrent hypoglycemia.
Monitor oral intake. If with reasonable oral intake and recurrent hypoglycemia we will need workup for insulinoma as outpatient.
Chronic anemia
Hemoglobin trending down with no evidence of acute blood loss
Iron studies consistent with mixed picture of iron deficiency and chronic inflammation
Anasarca including peripheral edema, right pleural effusion (transudate), ascites with imaging.
CT scan of the chest abdomen and pelvis with no evidence of occult malignancy.
Diagnostic paracentesis 02/22 30cc SAAG 0.9 not consistent with portal hypertension or CHF. Check KIMMY for possible petrositis
Abdominal ultrasound with Doppler, findings consistent with normal hepatic echotexture, although Doppler eval might be consistent with portal hypertension '
Follow cytology from right pleural effusion and paracentesis
Echocardiogram with preserved biventricular function, mild pulmonary hypertension could not explain ascites
Elevated pro CHF BNP, although no clinical evidence of decompensated CHF
UTI without sepsis
Mild leukocytosis at 11.5.
Urinalysis consistent with pyuria
Urine culture with E. coli, sensitive
Antibiotics consolidated to Unasyn to cover UTI as well as possible aspiration pneumonia to complete additional 3 days through 02/26
Stage III-IV sacral pressure ulcer. Continue wound care
Check x-ray with concern for possible osteomyelitis.
Hypothyroidism on replacement with mildly elevated TSH
Increase levothyroxine from 50 to 75 mcg.
Follow-up with TFT in 6 to 8 weeks.
Physical therapy evaluation
Nutrition consult
Dr. Bagley discussed with patient nephew on 02/21/24.
Anticipated Discharge: > 48 hours
Subjective/Interval History
-
Date of Service: February 25, 2024
Patient was seen and examined. She was drowsy this morning.
Objective Data
-
Labs:
Laboratory Results
02/25/24
06:35
WBC 8.3
Hgb 9.8 L
Hct 28.3 L
Plt Count 229
Sodium 135
Potassium 3.6
Chloride 106
Carbon Dioxide 25
BUN 16
Creatinine 0.4 L
Glucose 76
Calcium 7.7 L
Vital Signs:
Vital Signs
Temp Pulse Resp BP Pulse Ox
97.4 F 80 16 101/60 94
02/25/24 07:55 02/25/24 07:55 02/25/24 07:55 02/25/24 07:55 02/25/24 08:00
I&O
02/24/24 02/25/24 02/26/24
06:59 06:59 06:59
Intake Total 480 / 480 600 / 600
Balance 480 / 480 600 / 600
[2024-02-25] MEDS: PROTONIX 40 MG PO ×2 (12:38→20:39)
--- NOTE | 2024-02-25 13:30 | PTCARENOTE ---
Pt drowsy this am, arousable by name able to follow commands, but then goes back to sleep pt states' im just tired' Did not want breakfast, not awake enough for morning meds. Pt vitals stable placed on 2L of oxygen at start of shift for pox 90-91%
on RA now 94-96%. Aware, HOB elevated. Around lunch time pt more awake and conversive, gave sips of thin liquids with supervision, ate lunch with assistance. Pt was able to talk to on phone, Mouth care completed after lunch per orders,
HOB remained elevated after meal, call arceo within reach, plan of care continues.
[2024-02-25] MEDS: UNASYN IV ×2 (14:06→20:39)
[2024-02-25 15:00] VITALS: BP 105/52
[2024-02-25 16:35] VITALS: BP 105/52
[2024-02-25 23:55] VITALS: BP 124/65
[2024-02-26] MEDS: UNASYN IV ×4 (02:27→20:53)
[2024-02-26 03:27] LABS: ANA, IgG Reflex to HEp-2 None Detected (None Detected)
[2024-02-26] MEDS: SYNTHROID 75 MCG PO (05:43)
[2024-02-26] MEDS: HEPARIN 5000 UNITS SC ×2 (07:25→20:54)
[2024-02-26] MEDS: DESENEX/MITRAZOL/ZEASORB 1 APPLIC TOPICAL ×2 (07:41→20:52)
[2024-02-26] MEDS: THERAGRAN 1 TABLET PO (07:41)
[2024-02-26] MEDS: PROTONIX 40 MG PO ×2 (07:41→20:55)
[2024-02-26 07:55] VITALS: BP 98/54
--- NOTE | 2024-02-26 11:15 | W.PN.HOSP.TC ---
Today's Communication/Plan
-
Continue Unasyn for aspiration and UTI through 02/27/24.
Continue PPI BID.
Continue diet with aspiration precautions
Physical therapy evaluation
Continue sacral wound care.
Eventually placement to care home facility hopefully early next week.
Appreciate GI.
Assessment / Plan
Assessment / Plan
Physical Exam
General: Well Developed and No Apparent Distress
HEENT: Normocephalic, Atraumatic and Moist Mucous Membranes
Respiratory: Clear to Auscultation
Cardiac: Regular Rhythm and S1/S2; Negative Murmur, Rub or Gallop
GI: Soft, Nontender, Nondistended and Normal Bowel Sounds
Musculoskeletal: No Cyanosis and No Edema
Skin: Warm. Dry.
Neuro: Nonfocal/Grossly Intact
Psych: Drowsy
Assessment/Plan
Impression:
83 years old female presented with failure to thrive including generalized weakness poor appetite and oral intake progressive weight loss
UTI
Bilateral right greater than left pleural effusion small to moderate on the right
Aspiration pneumonitis, less likely pneumonia
� Aspiration syndrome with silent aspiration VSE confirmed
Right pleural effusion.
�Status post right thoracentesis 02/21: 500 mL transudate
Anasarca (peripheral edema, right pleural effusion, ascites)
Hypokalemia
Duodenal ulcers
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
Conditions prior to admission:
Recent hospitalization to [facility] with unremarkable workup
Hypothyroidism with elevated TSH.
GERD.
Chronic normocytic anemia.
Suspected dementia
Plan:
Failure to thrive with low oral intake, poor appetite, significant malnutrition with BMI of 21.
Patient offers no specific complaint other than generalized fatigue and weakness and poor oral intake.
Aspiration syndrome with silent aspiration confirmed by bedside evaluation as well as VSE.
VSE with delayed esophageal phase.
Consulted gastroenterology for further evaluation.
Follow-up chest x-ray after right thoracentesis with no evidence of infiltrate
Further workup with EGD on 02/22 revealing multiple duodenal ulcers.
Continue PPI
ZEL? As outpatient, will need further workup with gastrin level, chromogranin A advanced hold PPI for 2 weeks.
Also noted with recurrent hypoglycemia.
Monitor oral intake. If with reasonable oral intake and recurrent hypoglycemia we will need workup for insulinoma as outpatient.
Chronic anemia
Hemoglobin stable (previously trended down) with no evidence of acute blood loss
Iron studies consistent with mixed picture of iron deficiency and chronic inflammation
Anasarca including peripheral edema, right pleural effusion (transudate), ascites with imaging.
CT scan of the chest abdomen and pelvis with no evidence of occult malignancy.
Diagnostic paracentesis 02/22 30cc SAAG 0.9 not consistent with portal hypertension or CHF. Checked KIMMY for possible petrositis -- but no KIMMY detected
Abdominal ultrasound with Doppler, findings consistent with normal hepatic echotexture, although Doppler eval might be consistent with portal hypertension '
Follow cytology from right pleural effusion and paracentesis
Echocardiogram with preserved biventricular function, mild pulmonary hypertension could not explain ascites
Elevated pro CHF BNP, although no clinical evidence of decompensated CHF
UTI without sepsis
Mild leukocytosis at 11.5 - IMPROVING
Urinalysis consistent with pyuria
Urine culture with E. coli, sensitive
Antibiotics consolidated to Unasyn to cover UTI as well as possible aspiration pneumonia to complete additional 3 days through 02/26
Stage III-IV sacral pressure ulcer. Continue wound care
Checked x-ray with concern for possible osteomyelitis.
Hypothyroidism on replacement with mildly elevated TSH
Increase levothyroxine from 50 to 75 mcg.
Follow-up with TFT in 6 to 8 weeks.
Physical therapy evaluation
Nutrition consult
Dr. Bagley discussed with patient nephew on 02/21/24.
Anticipated Discharge: 24 - 48 hours
Subjective/Interval History
-
Date of Service: February 26, 2024
Patient was seen and examined. She reported no new symptoms or complaints.
Objective Data
-
Vital Signs:
Vital Signs
Temp Pulse Resp BP Pulse Ox
96.9 F L 77 14 98/54 95
02/26/24 07:55 02/26/24 07:55 02/26/24 07:55 02/26/24 07:55 02/26/24 09:32
I&O
02/25/24 02/26/24 02/27/24
06:59 06:59 06:59
Intake Total 600 / 600 720 / 1020 300 / 300
Balance 600 / 600 720 / 1020 300 / 300
[2024-02-26 12:00] LABS: % Basophils 0.1 % (0-2); % Eosinophils 0.1 % (0-6); % Immature Granulocytes 0.5 % (0-0.5); % Lymphocytes 12.3 % (20.5-51.1); % Monocytes 5.3 % (1.7-9.3); % Neutrophils 81.7 % (42.2-75.2); Absolute Lymphocytes 1.1 10^3/uL (1.2-3.4); Absolute Monocytes 0.5 10^3/uL (0.1-0.6); Hematocrit 29.2 % (37.0-47.0); Hemoglobin 9.8 g/dL (12.0-16.0); Mean Corp Hgb Conc. 33.6 g/dL (33.0-37.0); Mean Corpuscular Hgb 29.5 pg (27.0-31.0); Mean Platelet Volume 9.9 fL (7.4-10.4); Nucleated Red Blood Cells % 0 %; Platelet Count 192 10^3/uL (130-400); Red Blood Cell Count 3.32 10^6/uL (4.20-5.40); Red Cell Dist. Width 15.4 % (11.5-14.5); White Blood Cell Count 8.6 10^3/uL (4.8-10.8)
[2024-02-26 12:15] LABS: Blood Urea Nitrogen 16 mg/dl (7-17); Calcium 7.5 mg/dl (8.4-10.2); Carbon Dioxide 24 mmol/L (22-30); Chloride 107 mmol/L (98-107); Estimated Creatinine Clearance 58 ml/min; Glucose 64 mg/dl (70-99); Potassium 3.3 mmol/L (3.5-5.1); Sodium 136 mmol/L (135-145); eGFR > 60.00
[2024-02-26 15:00] VITALS: BP 130/72
[2024-02-26] MEDS: KCL 40 MEQ PO (16:11)
[2024-02-26 23:39] VITALS: BP 106/62
[2024-02-27] MEDS: UNASYN IV ×4 (01:27→21:37)
[2024-02-27] MEDS: SYNTHROID 75 MCG PO (05:45)
[2024-02-27 08:09] VITALS: BP 94/53
[2024-02-27] MEDS: FLUSH (NSS) 2 FLUSH IV ×2 (10:16→14:36)
[2024-02-27] MEDS: DESENEX/MITRAZOL/ZEASORB 1 APPLIC TOPICAL ×2 (10:17→21:38)
[2024-02-27] MEDS: HEPARIN 5000 UNITS SC ×2 (10:20→21:35)
[2024-02-27] MEDS: THERAGRAN 1 TABLET PO (10:21)
[2024-02-27] MEDS: PROTONIX 40 MG PO ×2 (10:21→21:38)
--- NOTE | 2024-02-27 11:33 | PTOTSP ---
ST Follow-Up
Pt continues to present with moderate pharyngoesophageal dysphagia and continues to present as a HIGH ASPIRATION RISK.
Recommendations:
- Continue with pureed solids.
- DOWNGRADE to moderately thick liquids via open cup only.
- Meds whole or crushed in puree.
- Aspiration precautions: CLOSE supervision during all PO intake - ensure pt is fully awake, alert, and upright for all PO intake; encourage pt to alternate liquids and solids; encourage pt to use multiple swallows per bite/sip; encourage pt to
cough and then swallow if she is presenting with a wet vocal quality.
- PAYMASTER [employer] to f/u re: diet tolerance of this downgraded diet and to provide further recommendations as indicated.
[2024-02-27 11:38] LABS: % Basophils 0.1 % (0-2); % Eosinophils 0.6 % (0-6); % Immature Granulocytes 0.6 % (0-0.5); % Lymphocytes 14.5 % (20.5-51.1); % Monocytes 5.2 % (1.7-9.3); Absolute Monocytes 0.4 10^3/uL (0.1-0.6); Absolute Neutrophils 5.5 10^3/uL (1.4-6.5); Hematocrit 24.5 % (37.0-47.0); Hemoglobin 8.5 g/dL (12.0-16.0); Mean Corp Hgb Conc. 34.7 g/dL (33.0-37.0); Mean Corpuscular Hgb 30.1 pg (27.0-31.0); Mean Corpuscular Volume 86.9 fL (81.0-99.0); Mean Platelet Volume 9.7 fL (7.4-10.4); Nucleated Red Blood Cells % 0 %; Platelet Count 174 10^3/uL (130-400); Red Blood Cell Count 2.82 10^6/uL (4.20-5.40); Red Cell Dist. Width 15.7 % (11.5-14.5)
[2024-02-27 11:58] LABS: Blood Urea Nitrogen 16 mg/dl (7-17); Calcium 7.4 mg/dl (8.4-10.2); Carbon Dioxide 24 mmol/L (22-30); Chloride 107 mmol/L (98-107); Estimated Creatinine Clearance 58 ml/min; Glucose 117 mg/dl (70-99); Potassium 3.4 mmol/L (3.5-5.1); Sodium 135 mmol/L (135-145); eGFR > 60.00
[2024-02-27] MEDS: KCL ELIXIR 40 MEQ PO (13:45)
--- NOTE | 2024-02-27 14:38 | W.PN.HOSP.TC ---
Today's Communication/Plan
-
Transient episode of hypothermia improved.
Completing course of antibiotics for UTI/aspiration on 02/26
Continue wound care
Discharge planning
Assessment / Plan
Assessment / Plan
Assessment/Plan
Impression:
83 years old female presented with failure to thrive including generalized weakness poor appetite and oral intake progressive weight loss
UTI
Bilateral right greater than left pleural effusion small to moderate on the right
Aspiration pneumonitis, less likely pneumonia
� Aspiration syndrome with silent aspiration VSE confirmed
Right pleural effusion.
�Status post right thoracentesis 02/21: 500 mL transudate
Anasarca (peripheral edema, right pleural effusion, ascites)
Hypokalemia
Duodenal ulcers
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
Conditions prior to admission:
Recent hospitalization to [facility] with unremarkable workup
Hypothyroidism with elevated TSH.
GERD.
Chronic normocytic anemia.
Suspected dementia
Plan:
Failure to thrive with low oral intake, poor appetite, significant malnutrition with BMI of 21.
Patient offers no specific complaint other than generalized fatigue and weakness and poor oral intake.
Aspiration syndrome with silent aspiration confirmed by bedside evaluation as well as VSE.
VSE with delayed esophageal phase.
Consulted gastroenterology for further evaluation.
Follow-up chest x-ray after right thoracentesis with no evidence of infiltrate
Further workup with EGD on 02/22 revealing multiple duodenal ulcers.
Continue PPI
ZEL? As outpatient, will need further workup with gastrin level, chromogranin A advanced hold PPI for 2 weeks.
Also noted with recurrent hypoglycemia.
Monitor oral intake. If with reasonable oral intake and recurrent hypoglycemia we will need workup for insulinoma as outpatient.
Chronic anemia
Hemoglobin stable (previously trended down) with no evidence of acute blood loss
Iron studies consistent with mixed picture of iron deficiency and chronic inflammation
Anasarca including peripheral edema, right pleural effusion (transudate), ascites with imaging.
CT scan of the chest abdomen and pelvis with no evidence of occult malignancy.
Diagnostic paracentesis 02/22 30cc SAAG 0.9 not consistent with portal hypertension or CHF. Checked KIMMY for possible petrositis -- but no KIMMY detected
Abdominal ultrasound with Doppler, findings consistent with normal hepatic echotexture, although Doppler eval might be consistent with portal hypertension '
Follow cytology from right pleural effusion and paracentesis
Echocardiogram with preserved biventricular function, mild pulmonary hypertension could not explain ascites
Elevated pro CHF BNP, although no clinical evidence of decompensated CHF
UTI without sepsis
Mild leukocytosis at 11.5 - IMPROVING
Urinalysis consistent with pyuria
Urine culture with E. coli, sensitive
Antibiotics consolidated to Unasyn to cover UTI as well as possible aspiration pneumonia to complete additional 3 days through 02/26
Stage III-IV sacral pressure ulcer. Continue wound care
Checked x-ray with concern for possible osteomyelitis.
Hypothyroidism on replacement with mildly elevated TSH
Increase levothyroxine from 50 to 75 mcg.
Follow-up with TFT in 6 to 8 weeks.
Physical therapy evaluation
Nutrition consult
Discussed with patient's nephew on 02/20, 02/23.
Anticipated Discharge: Within 24 hours
Subjective/Interval History
-
Date of Service: February 27, 2024
Objective Data
-
Labs:
Laboratory Results
02/27/24
11:22
WBC 7.0
Hgb 8.5 L
Hct 24.5 L
Plt Count 174
Sodium 135
Potassium 3.4 L
Chloride 107
Carbon Dioxide 24
BUN 16
Creatinine 0.4 L
Glucose 117 H
Calcium 7.4 L
Vital Signs:
Vital Signs
Temp Pulse Resp BP Pulse Ox
97.0 F 62 20 94/53 96
02/27/24 12:03 02/27/24 08:09 02/27/24 08:09 02/27/24 08:09 02/27/24 08:09
I&O
02/26/24 02/27/24 02/28/24
06:59 06:59 06:59
Intake Total 720 / 1020 1200 / 1200
Output Total 850 / 850
Balance 720 / 1020 350 / 350
Physical Exam
-
General: Well Developed and No Apparent Distress
HEENT: Normocephalic, Atraumatic and Moist Mucous Membranes
Respiratory: Clear to Auscultation
Cardiac: Regular Rhythm and S1/S2; Negative Murmur, Rub or Gallop
GI: Soft, Nontender, Nondistended and Normal Bowel Sounds; Negative Organomegaly
Rectal: Deferred by Provider
Musculoskeletal: No Clubbing, No Cyanosis and No Edema
Skin: Negative Rash
Neuro: Nonfocal/Grossly Intact
[2024-02-27 14:57] VITALS: PULSE 70; O2SAT 95
[2024-02-27 15:39] VITALS: BP 112/60
--- NOTE | 2024-02-27 15:47 | CM ---
indicated pt ready for dc tomorrow. spoke with nephew.
Spoke with [facility] he said she can return .
She is non ambulatory and will need ambulance to return to [facility]
Pt on oxygen 2 liters.
Temperature has improved.
Needs medical nec form for ambulance.
[facility]
report [phone]
fax [phone]
PLAN Return to [facility]
[2024-02-27 23:55] VITALS: BP 130/65
[2024-02-28] MEDS: UNASYN IV ×4 (02:01→21:29)
[2024-02-28 06:07] LABS: Blood Urea Nitrogen 14 mg/dl (7-17); Calcium 7.3 mg/dl (8.4-10.2); Carbon Dioxide 27 mmol/L (22-30); Chloride 109 mmol/L (98-107); Estimated Creatinine Clearance 58 ml/min; Glucose 83 mg/dl (70-99); Potassium 3.2 mmol/L (3.5-5.1); Sodium 138 mmol/L (135-145); eGFR > 60.00
[2024-02-28] MEDS: SYNTHROID 75 MCG PO (06:13)
[2024-02-28 07:15] VITALS: BP 91/40
[2024-02-28] MEDS: NSS 1000 IV (09:05)
[2024-02-28] MEDS: KCL 270 MEQ IV (09:16)
[2024-02-28] MEDS: PROTONIX 40 MG PO (09:44)
[2024-02-28] MEDS: THERAGRAN 1 TABLET PO (09:44)
[2024-02-28] MEDS: HEPARIN 5000 UNITS SC ×2 (09:44→21:29)
[2024-02-28] MEDS: DESENEX/MITRAZOL/ZEASORB 1 APPLIC TOPICAL ×2 (09:48→21:30)
[2024-02-28 10:12] LABS: % Basophils 0.2 % (0-2); % Eosinophils 0.6 % (0-6); % Immature Granulocytes 0.6 % (0-0.5); % Lymphocytes 17.3 % (20.5-51.1); % Monocytes 6.3 % (1.7-9.3); Absolute Lymphocytes 1.2 10^3/uL (1.2-3.4); Absolute Monocytes 0.4 10^3/uL (0.1-0.6); Hematocrit 26.7 % (37.0-47.0); Mean Corp Hgb Conc. 33.7 g/dL (33.0-37.0); Mean Corpuscular Hgb 29.6 pg (27.0-31.0); Mean Corpuscular Volume 87.8 fL (81.0-99.0); Nucleated Red Blood Cells % 0 %; Platelet Count 184 10^3/uL (130-400); Red Blood Cell Count 3.04 10^6/uL (4.20-5.40); Red Cell Dist. Width 15.9 % (11.5-14.5); White Blood Cell Count 6.7 10^3/uL (4.8-10.8)
[2024-02-28 11:10] LABS: Cortisol, Random 30.3 ug/dl
--- NOTE | 2024-02-28 12:14 | PTCARENOTE ---
Patient received this morning with Bear Hugger. rectal temp 97.2 - goal temp was 97.0 so Bear Hugger removed. BP running low this morning - 91/40 and patient very lethargic. IV fluid bolus of 1000 ml administered. MD notified and came to the bedside
to discuss code status. Patient states that she 'needs some time to think about it'. MD states that he will also speak to her family. Additional set of blood cultures drawn. Potassium today 3.2 - potassium rider administered as ordered. Patient now
more alert and sitting up in bed conversing.
[2024-02-28 13:14] VITALS: BP 163/82
[2024-02-28 14:33] LABS: Urine Albumin Negative (Neg - Trace); Urine Bilirubin Negative (Negative); Urine Character Clear (Clear); Urine Color Yellow; Urine Glucose Negative (Negative); Urine Ketone Negative (Negative); Urine Leukocyte Negative (Negative); Urine Nitrite Negative (Negative); Urine Occult Blood Negative (Negative); Urine Urobilinogen Negative (Neg - 1+)
--- NOTE | 2024-02-28 14:50 | PTOTSP ---
Speech Language Pathology
Pt seen for dysphagia tx. Pt was downgraded to moderately thick liquids yesterday by GRAV[employer] REGISTRATION SPECIALIST, as signs of aspiration noted with thin liquids. Spoke with PCT who reported noting gurgling this date when eating lunch. Seen with tsp of moderately thick
liquids x1 and cup sip x1. Audible swallow noted. Wet vocal quality noted with all. Pt was able to clear with this with a cued cough/reswallow, but did not attempt to clear this independently. She also reported feeling the liquid sitting in her
throat after swallowing.
Discussed signs of aspiration and risks of aspiration. Pt reported 'gurgling' when eating/drinking for approximately 2 years, so suspect dysphagia is chronic with acute worsening at this time.
Recommend:
(1) NPO
(2) Oral care 4x/day with suctioning as needed
(3) Goals of care discussion
(4) Non-oral meds
(5) G[employer] REGISTRATION SPECIALIST to continue to follow
[2024-02-28 15:33] VITALS: BP 139/70
--- NOTE | 2024-02-28 16:12 | PTCARENOTE ---
Patient without urine output today. Bladder scan completed twice with last one 346 mls. MD notified. Patient had been straight cathed twice previously. MD with order to place Rod cath. Rod placed successfully times one attempt. 500 mls of clear
yellow urine post Rod placement. Urine sent for culture as ordered. Stat lock placed right upper thigh. Patient denies complaints at this time.
[2024-02-28] MEDS: D5/0.45%NSS with KCL 10 MEQ 1000 IV (16:43)
--- NOTE | 2024-02-28 17:16 | W.PN.HOSP.TC ---
Today's Communication/Plan
-
N.p.o.
IV fluids
Aspiration precautions
IV antibiotics
Ongoing goals of care discussion with consideration of hospice.
Assessment / Plan
Assessment / Plan
Assessment/Plan
Impression:
83 years old female presented with failure to thrive including generalized weakness poor appetite and oral intake progressive weight loss
UTI
Bilateral right greater than left pleural effusion small to moderate on the right
Aspiration pneumonitis, less likely pneumonia
Aspiration syndrome with silent aspiration VSE confirmed
Right pleural effusion.
�Status post right thoracentesis 02/21: 500 mL transudate
Anasarca (peripheral edema, right pleural effusion, ascites)
Hypokalemia
Duodenal ulcers
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
Conditions prior to admission:
Recent hospitalization to [facility] with unremarkable workup
Hypothyroidism with elevated TSH.
GERD.
Chronic normocytic anemia.
Suspected dementia
Plan:
Failure to thrive with low oral intake, poor appetite, significant malnutrition with BMI of 21.
Patient offers no specific complaint other than generalized fatigue and weakness and poor oral intake.
Aspiration syndrome with silent aspiration confirmed by bedside evaluation as well as VSE.
VSE with delayed esophageal phase.
Consulted gastroenterology for further evaluation.
Ongoing speech evaluation consistent with significant aspiration
Will keep n.p.o. on IV fluids until further decision/goals of care discussion.
Further workup with EGD on 02/22 revealing multiple duodenal ulcers.
Continue PPI
ZEL? As outpatient, will need further workup with gastrin level, chromogranin A advanced hold PPI for 2 weeks.
Also noted with recurrent hypoglycemia.
Monitor oral intake. If with reasonable oral intake and recurrent hypoglycemia we will need workup for insulinoma as outpatient.
Chronic anemia
Hemoglobin stable (previously trended down) with no evidence of acute blood loss
Iron studies consistent with mixed picture of iron deficiency and chronic inflammation
Anasarca including peripheral edema, right pleural effusion (transudate), ascites with imaging.
CT scan of the chest abdomen and pelvis with no evidence of occult malignancy.
Diagnostic paracentesis 02/22 30cc SAAG 0.9 not consistent with portal hypertension or CHF. Checked KIMMY for possible petrositis -- but no KIMMY detected
Abdominal ultrasound with Doppler, findings consistent with normal hepatic echotexture, although Doppler eval might be consistent with portal hypertension '
Follow cytology from right pleural effusion and paracentesis
Echocardiogram with preserved biventricular function, mild pulmonary hypertension could not explain ascites
Elevated pro CHF BNP, although no clinical evidence of decompensated CHF
UTI without sepsis
Urinalysis consistent with pyuria
Urine culture with E. coli, sensitive
Antibiotics consolidated to Unasyn to cover UTI as well as possible aspiration pneumonia to complete additional 3 days through 02/26
Acute urine retention requiring Rod catheter placement on 02/27
Stage III-IV sacral pressure ulcer. Continue wound care
Checked x-ray with concern for possible osteomyelitis.
Hypothyroidism on replacement with mildly elevated TSH
Increase levothyroxine from 50 to 75 mcg.
Follow-up with TFT in 6 to 8 weeks.
Physical therapy evaluation
Nutrition consult
Disposition: Patient with severe aspiration syndrome including silent aspiration, aspiration pneumonia/pneumonitis, recurrent UTI, urine retention, sacral pressure wound, bedbound with progressive deterioration of performance status and overall
failure to thrive. Attempt of treatment with IV antibiotics, IV fluids with no clinical improvement. Ongoing discussion with patient, patient , family friend Foreign in terms of goals of care including CODE STATUS, options for artificial life
support including feeding, CPR, invasive ventilation. Patient will need family support and decision-making process. I indicated in her current situation in case of further deterioration not limited to cardiopulmonary arrest in the settings of
recurrent aspiration likely will lead to an unfavorable outcome. Option of palliative approach including hospice facility or home has been also discussed and left for patient and family to consider.
Anticipated Discharge: 24 - 48 hours
Subjective/Interval History
-
Date of Service: February 28, 2024
Objective Data
-
Labs:
Laboratory Results
02/28/24 02/28/24
05:21 09:23
WBC 6.7
Hgb 9.0 L
Hct 26.7 L
Plt Count 184
Sodium 138
Potassium 3.2 L
Chloride 109 H
Carbon Dioxide 27
BUN 14
Creatinine 0.3 L
Glucose 83
Calcium 7.3 L
Vital Signs:
Vital Signs
Temp Pulse Resp BP Pulse Ox
96.9 F L 74 20 139/70 98
02/28/24 16:00 02/28/24 15:33 02/28/24 15:33 02/28/24 15:33 02/28/24 15:33
I&O
02/27/24 02/28/24 02/29/24
06:59 06:59 06:59
Intake Total 1200 / 1200 720 / 720 1840 / 1840
Output Total 850 / 850 400 / 400 225 / 225
Balance 350 / 350 320 / 320 1615 / 1615
Physical Exam
-
General: Well Developed and No Apparent Distress
HEENT: Normocephalic, Atraumatic and Moist Mucous Membranes
Respiratory: Clear to Auscultation
Cardiac: Regular Rhythm and S1/S2; Negative Murmur, Rub or Gallop
GI: Soft, Nontender, Nondistended and Normal Bowel Sounds; Negative Organomegaly
Rectal: Deferred by Provider
Musculoskeletal: No Clubbing, No Cyanosis and No Edema
Skin: Negative Rash
Neuro: Nonfocal/Grossly Intact
--- NOTE | 2024-02-28 17:29 | CM ---
indicated pt ready for dc tomorrow. spoke with nephew.
Spoke with [facility] he said she can return under skilled. Pt requested to return to [facility] .
She is non ambulatory and will need ambulance to return to [facility]
Pt on oxygen 2 liters.
Needs medical nec form for ambulance.
Spoke with and he said CM could speak with Foreign nephew.
[facility]
report [phone]
fax [phone]
PLAN Return to [facility]
[2024-02-28] MEDS: PROTONIX PO (21:21)
--- NOTE | 2024-02-28 21:28 | CM ---
Late Entry for 5:00pm this evening. Received call from Foreign Galloway(?spg) friend of patient and her . He had just spoken to patient's Bill and he stated that he is overwhelmed with news of his 's prognosis. Patient would like to go
home with . Per Foreign , is requesting no calls from SHAWANDA chau, he would just like to take his home without hospice or other services. He just would like to be alone with his . He told Foreign that he discussed with his
and they prefer not to return to [facility] on hospice. Made Foreign aware that patient is a lot of physical care and that there is concern that patient's will be unable to care for her at home without additional services in the home to
assist. Foreign is stating that patient's spouse is trying to reach Dr. Bagley to discuss discharge. Foreign does not believe that patient's is comprehending the care his will need due to just hearing of her prognosis and being
overwhelmed by it all. Foreign stated he thought perhaps if the physician called him and explained the patients status and that her is not imminent as well as the care that will be required to take care of her, he may be more accepting of home
hospice or visiting nurse. Foreign also stated perhaps tomorrow , once her has a chance to absorb this information he may be more open to receiving either hospice or VN in the home. He asked if CM could outreach to in AM to explain
that both hospice as well as VN would only make intermittant visits, so he would still be able to spend time alone with his , along with receiving supportive services and resources . Update to Dr. Bagley and CM.
[2024-02-28] MEDS: PROTONIX IV 40 MG IV (21:30)
[2024-02-28] MEDS: NSS (PRESERVATIVE FREE) 10 ML IV (21:30)
[2024-02-28 23:07] VITALS: BP 104/48
[2024-02-29] MEDS: UNASYN IV ×3 (01:08→16:14)
--- NOTE | 2024-02-29 04:33 | DOWNTIME ---
There was a [employer]anner Downtime on 02/29/2024 from 0100 to 02/29/2024 at 0252. Downtime documentation of patient's care, including medication administrations, has been reconciled in the electronic record per guidelines. Refer to the
patient's paper chart under the miscellaneous tab to see printed paper medication records and downtime forms.
[2024-02-29] MEDS: SYNTHROID 75 MCG PO (05:28)
[2024-02-29] MEDS: D5/0.45%NSS with KCL 10 MEQ 1000 IV (07:13)
[2024-02-29 07:52] VITALS: BP 110/55
[2024-02-29 09:44] LABS: % Basophils 0.2 % (0-2); % Eosinophils 1.1 % (0-6); % Immature Granulocytes 0.7 % (0-0.5); % Monocytes 6.5 % (1.7-9.3); % Neutrophils 75.5 % (42.2-75.2); Absolute Eosinophils 0.1 10^3/uL (0-0.7); Absolute Lymphocytes 0.9 10^3/uL (1.2-3.4); Absolute Monocytes 0.4 10^3/uL (0.1-0.6); Absolute Neutrophils 4.3 10^3/uL (1.4-6.5); Mean Corp Hgb Conc. 33.3 g/dL (33.0-37.0); Mean Corpuscular Hgb 28.6 pg (27.0-31.0); Mean Corpuscular Volume 85.7 fL (81.0-99.0); Mean Platelet Volume 10.2 fL (7.4-10.4); Nucleated Red Blood Cells % 0 %; Platelet Count 182 10^3/uL (130-400); White Blood Cell Count 5.7 10^3/uL (4.8-10.8)
[2024-02-29] MEDS: HEPARIN 5000 UNITS SC (09:56)
[2024-02-29] MEDS: NSS (PRESERVATIVE FREE) 10 ML IV (09:56)
[2024-02-29] MEDS: PROTONIX IV 40 MG IV (09:56)
[2024-02-29] MEDS: DESENEX/MITRAZOL/ZEASORB 1 APPLIC TOPICAL ×2 (09:59→20:38)
[2024-02-29] MEDS: THERAGRAN PO (10:16)
[2024-02-29 10:17] LABS: Blood Urea Nitrogen 11 mg/dl (7-17); Carbon Dioxide 28 mmol/L (22-30); Chloride 111 mmol/L (98-107); Estimated Creatinine Clearance 58 ml/min; Glucose 95 mg/dl (70-99); Sodium 137 mmol/L (135-145); eGFR > 60.00
--- NOTE | 2024-02-29 12:33 | CON.NEURO4 ---
Documented by User: Steffi Harrison NP 02/29/24 14:51
Consultation - Neurology 4
-
CONSULTING PHYSICIAN: Markie Mullen MD
REFERRING PHYSICIAN: Hospitalists/Dr. Bagley
DICTATED BY: COSME Selby
DATE/TIME OF REQUEST: 02/29/24
DATE/TIME OF CONSULTATION: 02/29/24
Reason for Consultation: Dysphagia, failure to thrive
History of Present Illness:
This is an 83-year-old female who has presented to the hospital on 02/20/24 from a rehab facility with report of progressive weakness. Patient is currently too lethargic to answer many questions and cannot provide a history. Per medical records and
nursing staff, she previously lived at home and was walking independently about 9 months ago, but then started to require assistance with ambulation and had a series of falls and was hospitalized at [facility] for an unclear amount of time.
Workup including CT head was unremarkable, and she was discharged to rehab two weeks prior to arrival at . CT head was obtained on arrival on 02/20/24 and is negative for any acute findings. Urine culture was positive for E. Coli. Stage IV sacral
pressure ulcer was present on arrival. Chest xray demonstrated bilateral pleural effusions and likely underlying pneumonia, and she underwent right paracentesis. Patient's speech has been dysarthric and she has failed video swallow evaluation. It is
unclear how long her speech or swallowing function has been abnormal. She complains of pain with any movement but is unable to report what hurts. Also unable to provide a ROS.
Past Medical History: Hypothyroidism
Surgical History: Denies.
Family History: Reviewed and noncontributory.
Social History: Denies tobacco, alcohol, and illicit drug use.
Allergies: No known allergies.
Home Medications: See below.
Review of Symptoms:
Per the HPI. I am unable to obtain a complete review of systems�because of patient's inability to provide history.
Physical Exam:
The patient is hypothermic, abdomen is round, breathing is unlabored on oxygen via nasal cannula, skin erythemic, +anasarca.
Neurologic Examination:
The patient is lethargic, opens her eyes briefly to loud voice. Oriented to self, not time or place. Follows rare commands, crying and asking if she can be examined later. Answers some questions appropriately. There is no aphasia. There is moderate
dysarthria. On cranial nerve assessment, pupils are 3 mm bilateral, round and reactive to light and accommodation. MARTINE visual garza and EOMS. There is no facial asymmetry. Hearing is diminished bilaterally to normal conversation volume. MARTINE tongue
palate and uvula. Challenging to assess motor strength due to lack of cooperation. Moves upper extremities 2/5, BLE 1/5. MARTINE drift. No involuntary movement noted, no muscle fasciculations. Deep tendon reflexes are absent bilateral upper and lower
extremities and Babinski is absent bilaterally. MARTINE sensation, double simultaneous, and coordination.
Lab Results: See below.
Neuro Imaging:
1. CT Head 02/21/24: No evidence of acute intracranial abnormality.
Differentials for the patient's presentation include:
1. Failure to thrive, ambulatory dysfunction, TME in the setting of pneumonia, UTI, pleural effusions, pressure ulcer. Clinical status appears to be rapidly deteriorating, poor prognosis.
2. Unable to thoroughly examine patient for underlying neurological condition to explain FTT due to high acuity status. Cannot entirely exclude myasthenia gravis or other neurological condition contributing to dysphagia.
3. Unclear baseline cognitive status.
Recommendations:
-Myasthenia antibodies pending.
-Family decision to place patient on comfort care today.
Discussed patient care with: Dr. Mullen, the patient
Vital Signs and Labs
-
Vital Signs and Labs:
Vital Signs
Temp Pulse Resp BP Pulse Ox
95.8 F L 67 20 110/55 93
02/29/24 11:00 02/29/24 07:52 02/29/24 07:52 02/29/24 07:52 02/29/24 12:13
Lab Results
02/29/24 08:23
02/29/24 08:23
PT 15.3 Sec (11.4-14.6) H 02/23/24 05:33
INR 1.20 02/23/24 05:33
Sodium 137 mmol/L (135-145) 02/29/24 08:23
Potassium 3.0 mmol/L (3.5-5.1) L 02/29/24 08:23
BUN 11 mg/dl (7-17) 02/29/24 08:23
Glucose 95 mg/dl (70-99) 02/29/24 08:23
Calcium 7.0 mg/dl (8.4-10.2) L 02/29/24 08:23
Ksd-Z-Odxhxnpelno Pept 1680 pg/ml 02/22/24 07:46
Medications
-
Active Medications
Generic Name Dose Route Start Last Admin
Trade Name Freq PRN Reason Stop Dose Admin
Acetaminophen 650 mg 02/21/24 01:11
Acetaminophen 325 Mg Tablet PO 03/20/24 01:10
Q4HPRN PRN
mild pain/BEDOYA/temp> 100.4F
Ergocalciferol 50,000 units 02/24/24 08:00 02/24/24 09:46
Ergocalciferol (Vitamin D-2) 67670 Units Capsule PO 03/23/24 07:59 50,000 units
FR CHET Administration
Heparin Sodium 5,000 units 02/21/24 08:00 02/29/24 09:56
Heparin 5,000 Units/Ml 1 Ml Vial SC 03/20/24 07:59 5,000 units
Q12 CHET Administration
Ampicillin Sodium/Sulbactam 120 mls @ 240 mls/hr 02/25/24 14:00 02/29/24 09:55
Sodium 3 gm/ Sodium Chloride IV 120 mls
Q6H CHET Administration
Potassium Chloride/Dextrose/Sod Cl 20 meq in 1,000 mls @ 75 mls/hr 02/29/24 13:00
D5/0.45%Nss With Kcl 20 Meq IV
.[id number] CHET
Levothyroxine Sodium 75 mcg 02/22/24 06:00 02/29/24 05:28
Levothyroxine 75 Mcg Tablet PO 03/21/24 05:59 75 mcg
DAILY@0600 CHET Administration
Miconazole Nitrate 0 applic 02/24/24 09:00 02/29/24 09:59
Miconazole Powder Bottle TOPICAL 03/23/24 08:59 1 applic
BID CHET Administration
Multivitamins Therapeutic 1 tablet 02/21/24 08:00 02/29/24 10:16
Multivitamin Tablet PO 03/20/24 07:59 Not Given
DAILY CHET
Pantoprazole Sodium 40 mg 02/21/24 08:00 02/28/24 21:21
Pantoprazole 40 Mg Delayed Release Tablet PO 03/20/24 07:59 Not Given
BID CHET
Pantoprazole Sodium 40 mg 02/28/24 22:00 02/29/24 09:56
Pantoprazole Sodium 40 Mg/10 Ml Vial IV 03/27/24 21:59 40 mg
BID CHET Administration
Sodium Chloride 0 flush 02/21/24 02:00 02/27/24 14:36
Sodium Chloride 0.9% (Flush) Syringe IV 03/20/24 01:59 2 flush
PER PROTOCOL CHET Administration
Sodium Chloride 10 ml 02/28/24 22:00 02/29/24 09:56
Sodium Chloride 0.9% (Preservative Free) 10 Ml Vial IV 03/27/24 21:59 10 ml
BID CHET Administration
Home Medications
�Medication �Instructions �Recorded
acetaminophen 325 mg tablet 650 mg PO Q6HPRN PRN mild 02/20/24
pain/temp>100.4
bisacodyl 10 mg rectal suppository 10 mg GA DAILYPRN PRN constipation 02/20/24
(Dulcolax (bisacodyl))
ergocalciferol (vitamin D2) 1,250 1,250 mcg PO FR Supplement 02/20/24
mcg (50,000 unit) capsule
levothyroxine 50 mcg tablet 50 mcg PO DAILY Thyroid 02/20/24
loperamide 2 mg tablet (Imodium 2 mg PO Q6HPRN PRN diarrhea 02/20/24
A-D)
pantoprazole 40 mg tablet,delayed 40 mg PO BID Gastrointestinal Issue 02/20/24
release
polyethylene glycol 3350 17 gram 17 g PO DAILYPRN PRN constipation 02/20/24
oral powder packet (Miralax)
selenium sulfide 1 % shampoo 1 applic topical MOTH Skin Issues 02/20/24
(Selsun Blue)
therapeutic multivitamin 1 tab PO DAILY Supplement 02/20/24

Documented by User: Markie Mullen MD 03/01/24 06:08
Consultation - Neurology 4
-
CONSULTING PHYSICIAN: Markie Mullen MD
REFERRING PHYSICIAN: Hospitalists/Dr. Bagley
DICTATED BY: COSME Selby
DATE/TIME OF REQUEST: 02/29/24
DATE/TIME OF CONSULTATION: 02/29/24
Reason for Consultation: Dysphagia, failure to thrive
History of Present Illness:
This is an 83-year-old female who has presented to the hospital on 02/20/24 from a rehab facility with report of progressive weakness. Patient is currently too lethargic to answer many questions and cannot provide a history. Per medical records and
nursing staff, she previously lived at home and was walking independently about 9 months ago, but then started to require assistance with ambulation and had a series of falls and was hospitalized at [facility] for an unclear amount of time.
Workup including CT head was unremarkable, and she was discharged to rehab two weeks prior to arrival at . CT head was obtained on arrival on 02/20/24 and is negative for any acute findings. Urine culture was positive for E. Coli. Stage IV sacral
pressure ulcer was present on arrival. Chest xray demonstrated bilateral pleural effusions and likely underlying pneumonia, and she underwent right paracentesis. Patient's speech has been dysarthric and she has failed video swallow evaluation. It is
unclear how long her speech or swallowing function has been abnormal. She complains of pain with any movement but is unable to report what hurts. Also unable to provide a ROS.
Past Medical History: Hypothyroidism
Surgical History: Denies.
Family History: Reviewed and noncontributory.
Social History: Denies tobacco, alcohol, and illicit drug use.
Allergies: No known allergies.
Home Medications: See below.
Review of Symptoms:
Per the HPI. I am unable to obtain a complete review of systems�because of patient's inability to provide history.
Physical Exam:
The patient is hypothermic, abdomen is round, breathing is unlabored on oxygen via nasal cannula, skin erythemic, +anasarca.
Neurologic Examination:
The patient is lethargic, opens her eyes briefly to loud voice. Oriented to self, not time or place. Follows rare commands, crying and asking if she can be examined later. Answers some questions appropriately. There is no aphasia. There is moderate
dysarthria. On cranial nerve assessment, pupils are 3 mm bilateral, round and reactive to light and accommodation. MARTINE visual garza and EOMS. There is no facial asymmetry. Hearing is diminished bilaterally to normal conversation volume. MARTINE tongue
palate and uvula. Challenging to assess motor strength due to lack of cooperation. Moves upper extremities 2/5, BLE 1/5. MARTINE drift. No involuntary movement noted, no muscle fasciculations. Deep tendon reflexes are absent bilateral upper and lower
extremities and Babinski is absent bilaterally. MARTINE sensation, double simultaneous, and coordination.
Lab Results: See below.
Neuro Imaging:
1. CT Head 02/21/24: No evidence of acute intracranial abnormality.
Differentials for the patient's presentation include:
1. Failure to thrive, ambulatory dysfunction, TME in the setting of pneumonia, UTI, pleural effusions, pressure ulcer. Clinical status appears to be rapidly deteriorating, poor prognosis.
2. Unable to thoroughly examine patient for underlying neurological condition to explain FTT due to high acuity status. Cannot entirely exclude myasthenia gravis or other neurological condition contributing to dysphagia.
3. Unclear baseline cognitive status.
Recommendations:
-Myasthenia antibodies pending.
-Family decision to place patient on comfort care today.
Discussed patient care with: Dr. Mullen, the patient
Addendum:
Pat seen and examined. Agree with History, exam, assessment and plan. Briefly 83 yr. old lady with h/o multiple comorbidities resulting in declining cognition with loss of bulbar functions and arousal mechanism resulting in poor responsiveness.
There is no likelihood of meaningful recovery
No further neurological testing is warranted
Family is aware and pat is in Hospice
--- NOTE | 2024-02-29 14:11 | W.PN.HOSP.TC ---
Today's Communication/Plan
-
Comfort care
Assessment / Plan
Assessment / Plan
Assessment/Plan
Impression:
83 years old female presented with failure to thrive including generalized weakness poor appetite and oral intake progressive weight loss
UTI
Bilateral right greater than left pleural effusion small to moderate on the right
Aspiration pneumonitis, less likely pneumonia
Aspiration syndrome with silent aspiration VSE confirmed
Right pleural effusion.
�Status post right thoracentesis 02/21: 500 mL transudate
Anasarca (peripheral edema, right pleural effusion, ascites)
Hypokalemia
Duodenal ulcers
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
Conditions prior to admission:
Recent hospitalization to [facility] with unremarkable workup
Hypothyroidism with elevated TSH.
GERD.
Chronic normocytic anemia.
Suspected dementia
Plan:
Patient with failure to thrive severe ambulatory dysfunction, bedridden for over the last 9 months.
Severe aspiration syndrome with aspiration pneumonia, urinary tract infection, stage III-IV sacral pressure injury.
Severe malnutrition with BMI of 21, anasarca.
Rapidly deteriorating clinical status with developing toxic metabolic encephalopathy.
Discussion with patient's at the bedside on 02/28.
Respecting patient wishes not to pursue any aggressive and heroic measures of life support will be transition to comfort care
CODE STATUS DNR
Comfort care medications ordered to alleviate respiratory distress and agitation.
Discussed with patient nurse and case repairer at the bedside.
Anticipated Discharge: 24 - 48 hours
Subjective/Interval History
-
Date of Service: February 29, 2024
Objective Data
-
Labs:
Laboratory Results
02/29/24
08:23
WBC 5.7
Hgb 8.0 L
Hct 24.0 L
Plt Count 182
Sodium 137
Potassium 3.0 L
Chloride 111 H
Carbon Dioxide 28
BUN 11
Creatinine 0.4 L
Glucose 95
Calcium 7.0 L
Vital Signs:
Vital Signs
Temp Pulse Resp BP Pulse Ox
95.8 F L 67 20 110/55 93
02/29/24 11:00 02/29/24 07:52 02/29/24 07:52 02/29/24 07:52 02/29/24 12:13
I&O
02/28/24 02/29/24 03/01/24
06:59 06:59 06:59
Intake Total 720 / 720 2905 / 2905
Output Total 400 / 400 475 / 475
Balance 320 / 320 2430 / 2430
Physical Exam
-
General: Well Developed and No Apparent Distress
HEENT: Normocephalic, Atraumatic and Moist Mucous Membranes
Respiratory: Clear to Auscultation
Cardiac: Regular Rhythm and S1/S2; Negative Murmur, Rub or Gallop
GI: Soft, Nontender, Nondistended and Normal Bowel Sounds; Negative Organomegaly
Rectal: Deferred by Provider
Musculoskeletal: No Clubbing, No Cyanosis and No Edema
Skin: Negative Rash
Neuro: Other (Poorly responsive/stuporous)
[2024-02-29] MEDS: MORPHINE SULFATE 2 MG IV (14:24)
[2024-02-29 15:04] VITALS: BP 107/47
--- NOTE | 2024-02-29 15:41 | CM ---
CM spoke at length several times with Foreign, patient family friend and in person to patient . Patient now changed to DNR and to comfort care measures. CM reviewed with physician patient needs, no Hospice recommendation at this time. CM will
continue to follow for discharge planning needs. CM provided emotional supports as needed. Patient stated he was just having such difficulty absorbing the information about patient decline, as they have been 52 years. CM will
continue to follow for discharge planning needs.
Plan; TBD; pending medical treatment plan
[2024-02-29 16:11] VITALS: BP 106/50
--- NOTE | 2024-02-29 16:13 | PTCARENOTE ---
Patient made DNR today and placed on comfort care. Patient given 2mg IV morphine for respiratory difficulty with relief. Patient with respirations between 10 - 12 without noticable difficulty. spent time at bedside today and understands
prognosis/outcome and is in agreement to comfort care measures. Report called to nurse on and transported to new room.
--- NOTE | 2024-02-29 18:28 | PTCARENOTE ---
transferred from on comfort care measures in place. AAox3, arousable to verbal stimuli, denies pain, appears comfortable at this time. gupta in place, incontinent of bowel. complete care provided. NPO status maintained. all needs anticipated.
calm environment maintained in the patient's room
[2024-02-29 19:16] VITALS: BP 97/48
[2024-02-29] MEDS: NSS (PRESERVATIVE FREE) IV (20:38)
[2024-03-01 07:20] VITALS: BP 101/58
--- NOTE | 2024-03-01 07:53 | PTOTSP ---
Speech Therapy
Patient is now on comfort care, though NPO status maintained. Consider allowing ice chips for comfort as patient was requesting water yesterday. No further skilled ST indicated at this time.
[2024-03-01] MEDS: NSS (PRESERVATIVE FREE) IV ×2 (09:00→21:29)
[2024-03-01] MEDS: DESENEX/MITRAZOL/ZEASORB 1 APPLIC TOPICAL ×2 (09:00→21:30)
--- NOTE | 2024-03-01 13:59 | CM ---
Patient on comfort measures. Discharge Plan of Care TBD.
--- NOTE | 2024-03-01 14:36 | W.PN.HOSP.TC ---
Today's Communication/Plan
-
Continue comfort care
Assessment / Plan
Assessment / Plan
Assessment/Plan
Impression:
83 years old female presented with failure to thrive including generalized weakness poor appetite and oral intake progressive weight loss
UTI
Bilateral right greater than left pleural effusion small to moderate on the right
Aspiration pneumonitis, less likely pneumonia
Aspiration syndrome with silent aspiration VSE confirmed
Right pleural effusion.
�Status post right thoracentesis 02/21: 500 mL transudate
Anasarca (peripheral edema, right pleural effusion, ascites)
Hypokalemia
Duodenal ulcers
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
Conditions prior to admission:
Recent hospitalization to [facility] with unremarkable workup
Hypothyroidism with elevated TSH.
GERD.
Chronic normocytic anemia.
Suspected dementia
Plan:
Patient with failure to thrive severe ambulatory dysfunction, bedridden for over the last 9 months.
Severe aspiration syndrome with aspiration pneumonia, urinary tract infection, stage III-IV sacral pressure injury.
Severe malnutrition with BMI of 21, anasarca.
Rapidly deteriorating clinical status with developing toxic metabolic encephalopathy.
Discussion with patient's at the bedside on 02/28.
Respecting patient wishes not to pursue any aggressive and heroic measures of life support will be transition to comfort care
CODE STATUS DNR
Comfort care medications ordered to alleviate respiratory distress and agitation.
Discussed with patient nurse and rn case mgr at the bedside.
Anticipated Discharge: 24 - 48 hours
Subjective/Interval History
-
Date of Service: March 01, 2024
Objective Data
-
Vital Signs:
Vital Signs
Temp Pulse Resp BP Pulse Ox
93.5 F L 53 16 101/58 100
03/01/24 07:20 03/01/24 07:20 03/01/24 07:20 03/01/24 07:20 03/01/24 08:00
I&O
02/29/24 03/01/24 03/02/24
06:59 06:59 06:59
Intake Total 2905 / 2905
Output Total 475 / 475 300 / 300
Balance 2430 / 2430 -300 / -300
Physical Exam
-
General: Well Developed and No Apparent Distress
HEENT: Normocephalic, Atraumatic and Moist Mucous Membranes
Respiratory: Clear to Auscultation
Cardiac: Regular Rhythm and S1/S2; Negative Murmur, Rub or Gallop
GI: Soft, Nontender, Nondistended and Normal Bowel Sounds; Negative Organomegaly
Rectal: Deferred by Provider
Musculoskeletal: No Clubbing, No Cyanosis and No Edema
Skin: Negative Rash
Neuro: Other (Poorly responsive/stuporous)
--- NOTE | 2024-03-01 15:29 | PTOTSP ---
CHART REVIEWED AND SPOKE WITH RN. PATIENT NOW ON COMFORT MEASURES AND THERAPY DOES NOT APPEAR INDICATED AT THIS TIME. WILL DISCHARGE FORM P.T. SERVICES.
[2024-03-01 19:30] VITALS: BP 147/99
[2024-03-02 07:40] VITALS: BP 103/56
[2024-03-02] MEDS: DESENEX/MITRAZOL/ZEASORB 1 APPLIC TOPICAL ×2 (08:01→20:24)
[2024-03-02] MEDS: NSS (PRESERVATIVE FREE) IV ×2 (08:01→20:24)
[2024-03-02 15:00] VITALS: BP 141/66
--- NOTE | 2024-03-02 15:27 | W.PN.HOSP.TC ---
Today's Communication/Plan
-
No evidence for distress
Awake and interactive today requesting food. Will be initiated on comfort/regular diet.
Discussed with family and friends at the bedside.
Assessment / Plan
Assessment / Plan
Assessment/Plan
Impression:
83 years old female presented with failure to thrive including generalized weakness poor appetite and oral intake progressive weight loss
UTI
Bilateral right greater than left pleural effusion small to moderate on the right
Aspiration pneumonitis, less likely pneumonia
Aspiration syndrome with silent aspiration VSE confirmed
Right pleural effusion.
�Status post right thoracentesis 02/21: 500 mL transudate
Anasarca (peripheral edema, right pleural effusion, ascites)
Hypokalemia
Duodenal ulcers
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
Conditions prior to admission:
Recent hospitalization to [facility] with unremarkable workup
Hypothyroidism with elevated TSH.
GERD.
Chronic normocytic anemia.
Suspected dementia
Plan:
Patient with failure to thrive severe ambulatory dysfunction, bedridden for over the last 9 months.
Severe aspiration syndrome with aspiration pneumonia, urinary tract infection, stage III-IV sacral pressure injury.
Severe malnutrition with BMI of 21, anasarca.
Rapidly deteriorating clinical status with developing toxic metabolic encephalopathy.
Discussion with patient's at the bedside on 02/28.
Respecting patient wishes not to pursue any aggressive and heroic measures of life support will be transition to comfort care
CODE STATUS DNR
Comfort care medications ordered to alleviate respiratory distress and agitation.
Discussed with patient nurse and immigration case worker at the bedside.
Anticipated Discharge: 24 - 48 hours
Subjective/Interval History
-
Date of Service: March 02, 2024
Objective Data
-
Vital Signs:
Vital Signs
Temp Pulse Resp BP Pulse Ox
97.5 F 60 14 103/56 95
03/01/24 19:30 03/02/24 07:40 03/02/24 07:40 03/02/24 07:40 03/02/24 07:40
I&O
03/01/24 03/02/24 03/03/24
06:59 06:59 06:59
Intake Total 100 / 100
Output Total 300 / 300 200 / 200
Balance -300 / -300 -100 / -100
Physical Exam
-
General: Well Developed and No Apparent Distress
HEENT: Normocephalic, Atraumatic and Moist Mucous Membranes
Respiratory: Clear to Auscultation
Cardiac: Regular Rhythm and S1/S2; Negative Murmur, Rub or Gallop
GI: Soft, Nontender, Nondistended and Normal Bowel Sounds; Negative Organomegaly
Rectal: Deferred by Provider
Musculoskeletal: No Clubbing, No Cyanosis and No Edema
Skin: Negative Rash
Neuro: Awake, Alert and Other (Poorly responsive/stuporous)
--- NOTE | 2024-03-02 15:53 | CM ---
patient is dnr/comfort measures,asking for food.patient with failure to thrive/sacral pressure ulcer/asp pneumonitis.bedridden for over 9 months.plan continue comfort measures.
[2024-03-02 23:25] VITALS: BP 121/64
[2024-03-03 07:25] VITALS: BP 83/47
[2024-03-03 07:48] LABS: Acetylcholine Receptor Bind Ab 0.1 nmol/L (0.0-0.4)
[2024-03-03] MEDS: DESENEX/MITRAZOL/ZEASORB 1 APPLIC TOPICAL ×2 (09:00→19:35)
--- NOTE | 2024-03-03 12:34 | W.PN.HOSP.TC ---
Today's Communication/Plan
-
cw comfort measures
Assessment / Plan
Assessment / Plan
Assessment/Plan
Impression:
83 years old female presented with failure to thrive including generalized weakness poor appetite and oral intake progressive weight loss
UTI
Bilateral right greater than left pleural effusion small to moderate on the right
Aspiration pneumonitis, less likely pneumonia
Aspiration syndrome with silent aspiration VSE confirmed
Right pleural effusion.
�Status post right thoracentesis 02/21: 500 mL transudate
Anasarca (peripheral edema, right pleural effusion, ascites)
Hypokalemia
Duodenal ulcers
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
Conditions prior to admission:
Recent hospitalization to [facility] with unremarkable workup
Hypothyroidism with elevated TSH.
GERD.
Chronic normocytic anemia.
Suspected dementia
Plan:
Patient with failure to thrive severe ambulatory dysfunction, bedridden for over the last 9 months.
Severe aspiration syndrome with aspiration pneumonia, urinary tract infection, stage III-IV sacral pressure injury.
Severe malnutrition with BMI of 21, anasarca.
Rapidly deteriorating clinical status with developing toxic metabolic encephalopathy.
Discussion by Dr Bagley with patient's at the bedside on 02/28.
Respecting patient wishes not to pursue any aggressive and heroic measures of life support she was transitioned to comfort care
CODE STATUS DNR
Comfort care medications ordered to alleviate respiratory distress and agitation.
Discussed with patient nurse .
Anticipated Discharge: 24 - 48 hours
Subjective/Interval History
-
Date of Service: March 03, 2024
Patient on comfort measures
Opens eyes to commands and says she is comfortable. Denying any pain.
Discussed with RN-patient is comfortable.
Objective Data
-
Vital Signs:
Vital Signs
Temp Pulse Resp BP Pulse Ox
96.5 F L 66 14 83/47 88
03/03/24 07:25 03/03/24 07:25 03/03/24 07:25 03/03/24 07:25 03/03/24 07:25
I&O
03/02/24 03/03/24 03/04/24
06:59 06:59 06:59
Intake Total 100 / 100 280 / 280
Output Total 200 / 200
Balance -100 / -100 280 / 280
Review of Systems
-
Unable to obtain full review of systems at this time due to: Other (on comfort measures)
Physical Exam
-
General: Comfortable
Respiratory: Non Labored Respirations; Negative Accessory Resp Muscle Use
Neuro: Awake; Negative Alert
Psych: Calm
[2024-03-03 23:23] VITALS: BP 95/51
[2024-03-04 07:25] VITALS: BP 106/51
[2024-03-04] MEDS: DESENEX/MITRAZOL/ZEASORB 1 APPLIC TOPICAL ×2 (08:54→20:31)
--- NOTE | 2024-03-04 10:27 | W.PN.HOSP.TC ---
Addendum entered and electronically signed by Heri Nash MD 03/04/24 12:54:
Asked to speak with the family who is making a change in the goals of care.
present at bedside and a friend of the family.
They want to know the answers while she is in the state she is and what is the diagnosis.
They want her treated.
Reviewed the available data .
Case of failure to thrive since 9 months without a clear answer.
Pt with third spacing including ascites, pleural effusions, and SQ edema but no obvious cirrhosis or cardiomyopathy.
Cytology from fluid has been neg.
For now will resume on modified diet, start on iv fluids. Speech to see.
Jaden hugger blanket and resume synthyroid.
Start back on PPI.
Consider tertiary care transfer for lack of answer.
Full code for now.
total time spent on today's encounter was 52 minutes which included time spent in counseling the patient/family regarding diagnosis and treatment plan as listed above, goals of care, and symptom management. Case was discussed with nursing staff, .
All labs and imaging personally reviewed by me. Remainder the time spent in detailed review of previous records, lab data, imaging, and other medical provider documentation.
Original Note:
Today's Communication/Plan
-
CW current comfort measures.
Assessment / Plan
Assessment / Plan
Assessment/Plan
Impression:
83 years old female presented with failure to thrive including generalized weakness poor appetite and oral intake progressive weight loss
UTI
Bilateral right greater than left pleural effusion small to moderate on the right
Aspiration pneumonitis, less likely pneumonia
Aspiration syndrome with silent aspiration VSE confirmed
Right pleural effusion.
�Status post right thoracentesis 02/21: 500 mL transudate
Anasarca (peripheral edema, right pleural effusion, ascites)
Hypokalemia
Duodenal ulcers
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
Conditions prior to admission:
Recent hospitalization to [facility] with unremarkable workup
Hypothyroidism with elevated TSH.
GERD.
Chronic normocytic anemia.
Suspected dementia
Plan:
Patient with failure to thrive severe ambulatory dysfunction, bedridden for over the last 9 months.
Severe aspiration syndrome with aspiration pneumonia, urinary tract infection, stage III-IV sacral pressure injury.
Severe malnutrition with BMI of 21, anasarca.
Rapidly deteriorating clinical status with developing toxic metabolic encephalopathy.
Discussion by Dr Bagley with patient's at the bedside on 02/28.
Respecting patient wishes not to pursue any aggressive and heroic measures of life support she was transitioned to comfort care
CODE STATUS DNR
Comfort care medications ordered to alleviate respiratory distress and agitation.Not requiring much of comfort measures.
Discussed with patient nurse.
Anticipated Discharge: Within 24 hours
Subjective/Interval History
-
Date of Service: March 04, 2024
On comfort measures.
She is comfortable.
Discussed with RN-no overnight events.
Objective Data
-
Vital Signs:
Vital Signs
Temp Pulse Resp BP Pulse Ox
91.7 F L 72 16 106/51 88
03/04/24 07:25 03/04/24 07:25 03/04/24 07:25 03/04/24 07:25 03/04/24 07:25
I&O
03/03/24 03/04/24 03/05/24
06:59 06:59 06:59
Intake Total 280 / 280 720 / 720
Output Total 650 / 650
Balance 280 / 280 70 / 70
Review of Systems
-
Respiratory: Denies Trouble Breathing
Cardiac: Denies Chest Pain
Abdomen/GI: Denies Abdominal Pain, Nausea or Vomiting
Neuro: Denies Headache
Physical Exam
-
General: Comfortable
Respiratory: Non Labored Respirations; Negative Accessory Resp Muscle Use
GI: Soft
Neuro: Awake and Alert
Psych: Calm
--- NOTE | 2024-03-04 12:00 | PTCARENOTE ---
Pt family at bedside visiting with pt. Family asking this RN what the plan is and if pt could be put on IV fluid for hydration. This RN TT Nash to come to bedside to speak with family as goals of care seemed unclear. Pt offers no complaints at
this time and call arceo within reach.
--- NOTE | 2024-03-04 12:59 | CM ---
Patient now changed to full code after discussion with physician. Patient and friend apparently requested treatment. CM will continue to follow for discharge planning needs.
Plan; TBD pending assessments.
[2024-03-04] MEDS: NSS 1000 IV (13:23)
[2024-03-04] MEDS: PROTONIX IV 40 MG IV ×2 (13:24→20:28)
[2024-03-04] MEDS: NSS (PRESERVATIVE FREE) 10 ML IV ×2 (13:24→20:29)
[2024-03-04 15:50] VITALS: BP 115/75
--- NOTE | 2024-03-04 17:17 | PTOTSP ---
ST Follow-Up/Re-Evaluation
Pt currently presents with clinical symptoms consistent with severe oropharyngeal dysphagia 2/2 likely metabolic derangements from recent withdrawal of care for several days and implementation of comfort care diet.
Recommendations:
- For restorative care purposes, would recommend STRICT NPO, including medications. No ARHP.
- Aspiration precautions: HOB upright as often as possible; oral care QID; suctioning as needed.
- Highly recommend ongoing goals of care conversations.
- MONITOR TECHNICIAN will f/u re: re-assessing pt's candidacy for re-initiation a PO diet and/or need for repeat instrumental swallow study.
[2024-03-04 19:24] VITALS: BP 94/51
[2024-03-04 23:32] VITALS: BP 94/48
[2024-03-05] VITALS (7 sets, daily range): BP systolic 80–98; BP diastolic 41–51
[2024-03-05] MEDS: NSS 1000 IV ×2 (01:55→11:55)
[2024-03-05] MEDS: NSS (PRESERVATIVE FREE) 10 ML IV (08:22)
[2024-03-05] MEDS: PROTONIX IV 40 MG IV (08:22)
[2024-03-05] MEDS: DESENEX/MITRAZOL/ZEASORB 1 APPLIC TOPICAL ×2 (08:23→20:20)
[2024-03-05 08:47] LABS: Hematocrit 21.8 % (37.0-47.0); Hemoglobin 7.5 g/dL (12.0-16.0); Mean Corp Hgb Conc. 34.4 g/dL (33.0-37.0); Mean Corpuscular Hgb 29.1 pg (27.0-31.0); Mean Corpuscular Volume 84.5 fL (81.0-99.0); Mean Platelet Volume 10.9 fL (7.4-10.4); Platelet Count 127 10^3/uL (130-400); Red Blood Cell Count 2.58 10^6/uL (4.20-5.40); Red Cell Dist. Width 16.9 % (11.5-14.5); White Blood Cell Count 8.4 10^3/uL (4.8-10.8)
[2024-03-05 09:16] LABS: ALT (SGPT) 14 U/L (0-35); AST (SGOT) 47 U/L (14-36); Albumin 1.6 g/dl (3.5-5.0); Alkaline Phosphatase 62 U/L (38-126); Blood Urea Nitrogen 23 mg/dl (7-17); Calcium 7.4 mg/dl (8.4-10.2); Carbon Dioxide 25 mmol/L (22-30); Chloride 112 mmol/L (98-107); Estimated Creatinine Clearance 58 ml/min; Glucose 31 mg/dl (70-99); Potassium 2.6 mmol/L (3.5-5.1); Sodium 143 mmol/L (135-145); Total Bilirubin 0.3 mg/dl (0.2-1.3); Total Protein 4.3 g/dl (6.3-8.2); eGFR > 60.00
--- NOTE | 2024-03-05 09:50 | PTCARENOTE ---
Pt's BP this AM was 87/41, potassium 2.6, glucose on blood draw 31. MD made aware, came to see pt, pt ordered 1000mL IVF bolus and IV dextrose. MD to be in contact with family about goals of care. Jaden angela, pt's temp is 95.1 rectally. No new
orders at this time.
[2024-03-05] MEDS: NSS IV ×2 (10:29→12:36)
[2024-03-05] MEDS: DEXTROSE 50% SYRINGE IV (10:32)
[2024-03-05] MEDS: DEXTROSE 50% SYRINGE 25 GRAMS IV (11:56)
[2024-03-05] MEDS: MORPHINE SULFATE 2 MG IV (12:03)
[2024-03-05] MEDS: MORPHINE 100 IV (13:59)
[2024-03-05] MEDS: ATIVAN 1 MG IV (14:02)
--- NOTE | 2024-03-05 14:07 | W.PN.HOSP.TC ---
Today's Communication/Plan
-
Continue comfort care
Assessment / Plan
Assessment / Plan
Assessment/Plan
Impression:
83 years old female presented with failure to thrive including generalized weakness poor appetite and oral intake progressive weight loss
UTI
Bilateral right greater than left pleural effusion small to moderate on the right
Aspiration pneumonitis, less likely pneumonia
Aspiration syndrome with silent aspiration VSE confirmed
Right pleural effusion.
�Status post right thoracentesis 02/21: 500 mL transudate
Anasarca (peripheral edema, right pleural effusion, ascites)
Hypokalemia
Duodenal ulcers
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
Conditions prior to admission:
Recent hospitalization to [facility] with unremarkable workup
Hypothyroidism with elevated TSH.
GERD.
Chronic normocytic anemia.
Suspected dementia
Plan:
Patient with failure to thrive severe ambulatory dysfunction, bedridden for over the last 9 months.
Severe aspiration syndrome with aspiration pneumonia, urinary tract infection, stage III-IV sacral pressure injury.
Severe malnutrition with BMI of 21, anasarca.
Rapidly deteriorating clinical status with developing toxic metabolic encephalopathy.
Morning of 03/05 patient found to be poorly responsive moaning in pain, hypothermic and hypotensive
Met with patient's as well as family friend at the bedside
Decision is to continue comfort care and avoid suffering.
Continue morphine with option of titration to comfort including drip.
Continue lorazepam for anxiety and agitation.
Secretion management.
Discussed with nursing and hospice.
Anticipated Discharge: 24 - 48 hours
Subjective/Interval History
-
Date of Service: March 05, 2024
Objective Data
-
Labs:
Laboratory Results
03/05/24
07:56
WBC 8.4
Hgb 7.5 L
Hct 21.8 L
Plt Count 127 L D
Sodium 143
Potassium 2.6 L*
Chloride 112 H
Carbon Dioxide 25
BUN 23 H
Creatinine 0.5 L
Glucose 31 L*
Calcium 7.4 L
Total Bilirubin 0.3
AST 47 H
ALT 14
Alkaline Phosphatase 62
Vital Signs:
Vital Signs
Temp Pulse Resp BP Pulse Ox
96.1 F L 81 18 89/43 94
03/05/24 11:00 03/05/24 12:33 03/05/24 11:00 03/05/24 12:33 03/05/24 13:22
I&O
03/04/24 03/05/24 03/06/24
06:59 06:59 06:59
Intake Total 720 / 720 185 / 185
Output Total 650 / 650 450 / 450
Balance 70 / 70 -265 / -265
Physical Exam
-
General: Appears in Distress and Appears Chronically Ill
HEENT: Normocephalic and Atraumatic
Respiratory: Rhonchi
Cardiac: Regular Rhythm and S1/S2
GI: Soft
Musculoskeletal: Other (Anasarca)
Skin: Warm
Neuro: Other (Poorly responsive)
--- NOTE | 2024-03-05 14:49 | CM ---
CM following re: discharge planning.
Reviewed pt's chart.
Per MD, continue comfort care.
CM is available for emotional support.
--- NOTE | 2024-03-05 16:47 | PTCARENOTE ---
This RN went in to assess pt with rn case manager hospice, in agreement with change in level of care, huan hugger/telemetry pack/IVF removed. MD made aware, PRN ativan administered for agitation/restlessness, Morphine gtt for end of life/comfort measures
ordered and hung at 1405 on step 2 (2mg/mL/hr). Pt resting comfortably in bed with spouse and close friend at bedside. No new orders at this time.
[2024-03-05] MEDS: NSS (PRESERVATIVE FREE) IV (20:14)
[2024-03-06 07:20] VITALS: BP 66/34
[2024-03-06] MEDS: NSS (PRESERVATIVE FREE) IV ×2 (08:20→21:03)
[2024-03-06] MEDS: DESENEX/MITRAZOL/ZEASORB 1 APPLIC TOPICAL ×2 (09:00→21:11)
[2024-03-06] MEDS: MORPHINE SULFATE 2 MG IV ×2 (10:05→15:35)
[2024-03-06] MEDS: ROBINUL 0.2 MG IV (10:06)
--- NOTE | 2024-03-06 10:31 | CM ---
CM continues to follow; Michelle is now receiving comfort care; she is now on a morphine drip for end of life/comfort measures.
surveying or spatial science technician following closely.
CM remains available to provide support to family as needed.
--- NOTE | 2024-03-06 10:43 | HOSPNOTE ---
Called pastoral care and asked for a speaker wirer to administer last rites. A speaker wirer will be over shortly.
--- NOTE | 2024-03-06 10:45 | CHAP ---
Msgr. Torres of [facility] in [place] will come right away to give the patient Last Rites.
--- NOTE | 2024-03-06 13:46 | W.PN.HOSP.TC ---
Today's Communication/Plan
-
Continue comfort care
Initiated on IV morphine drip for distress and pain.
Assessment / Plan
Assessment / Plan
Assessment/Plan
Impression:
83 years old female presented with failure to thrive including generalized weakness poor appetite and oral intake progressive weight loss
UTI
Bilateral right greater than left pleural effusion small to moderate on the right
Aspiration pneumonitis, less likely pneumonia
Aspiration syndrome with silent aspiration VSE confirmed
Right pleural effusion.
�Status post right thoracentesis 02/21: 500 mL transudate
Anasarca (peripheral edema, right pleural effusion, ascites)
Hypokalemia
Duodenal ulcers
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
Conditions prior to admission:
Recent hospitalization to [facility] with unremarkable workup
Hypothyroidism with elevated TSH.
GERD.
Chronic normocytic anemia.
Suspected dementia
Plan:
Patient with failure to thrive severe ambulatory dysfunction, bedridden for over the last 9 months.
Severe aspiration syndrome with aspiration pneumonia, urinary tract infection, stage III-IV sacral pressure injury.
Severe malnutrition with BMI of 21, anasarca.
Rapidly deteriorating clinical status with developing toxic metabolic encephalopathy.
Morning of 03/05 patient found to be poorly responsive moaning in pain, hypothermic and hypotensive
Met with patient's as well as family friend at the bedside
Decision is to continue comfort care and avoid suffering.
Continue morphine with option of titration to comfort including drip.
Continue lorazepam for anxiety and agitation.
Secretion management.
Discussed with nursing and hospice.
Anticipated Discharge: 24 - 48 hours
Subjective/Interval History
-
Date of Service: March 06, 2024
Objective Data
-
Vital Signs:
Vital Signs
Temp Pulse Resp BP Pulse Ox
89.7 F L 56 16 66/34 70
03/06/24 07:20 03/06/24 07:20 03/06/24 07:20 03/06/24 07:20 03/06/24 07:20
I&O
03/05/24 03/06/24 03/07/24
06:59 06:59 06:59
Intake Total 185 / 185 1250 / 1250
Output Total 450 / 450 150 / 150
Balance -265 / -265 1100 / 1100
Physical Exam
-
General: Well Developed and No Apparent Distress
HEENT: Normocephalic, Atraumatic and Moist Mucous Membranes
Respiratory: Clear to Auscultation
Cardiac: Regular Rhythm and S1/S2; Negative Murmur, Rub or Gallop
GI: Soft, Nontender, Nondistended and Normal Bowel Sounds; Negative Organomegaly
Rectal: Deferred by Provider
Musculoskeletal: No Clubbing, No Cyanosis and No Edema
Skin: Negative Rash
Neuro: Other
[2024-03-06 23:11] VITALS: BP 67/37
[2024-03-07 07:25] VITALS: BP 71/31
[2024-03-07] MEDS: NSS (PRESERVATIVE FREE) IV ×2 (09:00→19:41)
[2024-03-07] MEDS: DESENEX/MITRAZOL/ZEASORB 1 APPLIC TOPICAL ×2 (09:00→20:38)
[2024-03-07] MEDS: MORPHINE SULFATE 2 MG IV (09:35)
[2024-03-07] MEDS: ROBINUL 0.2 MG IV (09:36)
[2024-03-07] MEDS: MORPHINE 100 IV (10:30)
--- NOTE | 2024-03-07 12:04 | HOSPNOTE ---
Patient is unresponsive and actively dying. Will continue to support.
--- NOTE | 2024-03-07 16:21 | CM ---
Continue comfort measures.
CM will continue to follow.
--- NOTE | 2024-03-07 17:51 | W.PN.HOSP.TC ---
Today's Communication/Plan
-
Continue comfort care
Assessment / Plan
Assessment / Plan
Assessment/Plan
Impression:
83 years old female presented with failure to thrive including generalized weakness poor appetite and oral intake progressive weight loss
UTI
Bilateral right greater than left pleural effusion small to moderate on the right
Aspiration pneumonitis, less likely pneumonia
Aspiration syndrome with silent aspiration VSE confirmed
Right pleural effusion.
�Status post right thoracentesis 02/21: 500 mL transudate
Anasarca (peripheral edema, right pleural effusion, ascites)
Hypokalemia
Duodenal ulcers
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
Conditions prior to admission:
Recent hospitalization to [facility] with unremarkable workup
Hypothyroidism with elevated TSH.
GERD.
Chronic normocytic anemia.
Suspected dementia
Plan:
Patient with failure to thrive severe ambulatory dysfunction, bedridden for over the last 9 months.
Severe aspiration syndrome with aspiration pneumonia, urinary tract infection, stage III-IV sacral pressure injury.
Severe malnutrition with BMI of 21, anasarca.
Rapidly deteriorating clinical status with developing toxic metabolic encephalopathy.
Morning of 03/05 patient found to be poorly responsive moaning in pain, hypothermic and hypotensive
Met with patient's as well as family friend at the bedside
Decision is to continue comfort care and avoid suffering.
Continue morphine with option of titration to comfort including drip.
Continue lorazepam for anxiety and agitation.
Secretion management.
Discussed with nursing and hospice.
Anticipated Discharge: 24 - 48 hours
Subjective/Interval History
-
Date of Service: March 07, 2024
Objective Data
-
Vital Signs:
Vital Signs
Temp Pulse Resp BP Pulse Ox
86.0 F L 49 6 71/31 83
03/07/24 07:25 03/07/24 07:25 03/07/24 07:25 03/07/24 07:25 03/07/24 08:00
I&O
03/06/24 03/07/24 03/08/24
06:59 06:59 06:59
Intake Total 1250 / 1250 0 / 0
Output Total 150 / 150 100 / 100 100 / 100
Balance 1100 / 1100 -76 / -76 -100 / -100
Physical Exam
-
General: Well Developed and No Apparent Distress
HEENT: Normocephalic, Atraumatic and Moist Mucous Membranes
Respiratory: Clear to Auscultation
Cardiac: Regular Rhythm and S1/S2; Negative Murmur, Rub or Gallop
GI: Soft, Nontender, Nondistended and Normal Bowel Sounds; Negative Organomegaly
Rectal: Deferred by Provider
Musculoskeletal: No Clubbing, No Cyanosis and No Edema
Skin: Negative Rash
Neuro: Other
[2024-03-07 20:29] VITALS: BP 69/33
[2024-03-08] MEDS: MORPHINE SULFATE 2 MG IV (04:55)
[2024-03-08] MEDS: FLUSH (NSS) 1 FLUSH IV (04:57)
--- NOTE | 2024-03-08 05:37 | PTCARENOTE ---
Patient continues on Step 2 end of life pain management. She received 1 dose of breakthrough morphine this shift. FARHAD motgian to thighs noted this am. Respirations more shallow with continued periods of apnea. Personal care done. For
continued monitoring.
[2024-03-08 07:20] VITALS: BP 58/31
[2024-03-08] MEDS: DESENEX/MITRAZOL/ZEASORB 1 APPLIC TOPICAL (07:38)
[2024-03-08] MEDS: NSS (PRESERVATIVE FREE) IV (07:39)
[2024-03-08 08:11] VITALS: BP 58/31
--- NOTE | 2024-03-08 11:09 | PTCARENOTE ---
This RN went in to check on pt, no spontaneous breath sounds or pulses located, MD made aware to come to bedside, Morphine drip paused at this time.
--- NOTE | 2024-03-08 11:58 | W.PN.DEATH ---
Pronouncement of
-
Called to see patient to pronounce.
No spontaneous heart tones or respirations noted.
Patient not responsive to verbal stimuli.
Patient is pronounced .
Time of : 11:05
Date of : 03/08/24
Cause of : Aspiration pneumonia
Family Notified: Yes
--- NOTE | 2024-03-08 12:57 | PTCARENOTE ---
Gift [facility] life called at 1248, pt does not meet requirements for donation based on age. Form signed and in the chart. Morphine drip wasted, waiting on additional family members for visitation.
--- NOTE | 2024-03-08 14:56 | PTCARENOTE ---
Post mortem care given. No belongings with pt to be set. Security called to meet at room M.
== END 2024-03-08 15:08 | disposition expired | DRG 177 ==
LOC: 2 NORTH 09:08
PROVIDERS: Hospitalist; Internal Medicine; Nurse Practitioner Adult Health; Nurse Practitioner Family; Physician Assistant; Radiology Diagnostic Radiology; Radiology Vascular & Interventional Radiology; ADMITTING PHYSICIAN Hospitalist; ATTENDING PHYSICIAN Internal Medicine; CONSULT PHYSICIAN Internal Medicine Gastroenterology; CONSULT PHYSICIAN Psychiatry & Neurology Neurology; EMERGENCY PHYSICIAN Emergency Medicine; FAMILY PHYSICIAN Internal Medicine
PROC: 0W993ZX Drainage of Right Pleural Cavity, Percutaneous Approach, Diagnostic (ICD-10-PCS; 2024-02-22)
PROC: 0DB78ZX Excision of Stomach, Pylorus, Via Natural or Artificial Opening Endoscopic, Diagnostic (ICD-10-PCS; 2024-02-23)
PROC: 0W9G3ZZ Drainage of Peritoneal Cavity, Percutaneous Approach (ICD-10-PCS; 2024-02-23)
PROC: 0DB98ZX Excision of Duodenum, Via Natural or Artificial Opening Endoscopic, Diagnostic (ICD-10-PCS; 2024-02-23)
DX: J69.0 Pneumonitis due to inhalation of food and vomit (principal); E43 Unspecified severe protein-calorie malnutrition; G92.8 Other toxic encephalopathy; L89.154 Pressure ulcer of sacral region, stage 4; J96.90 Respiratory failure, unspecified, unspecified whether with hypoxia or hypercapnia; N39.0 Urinary tract infection, site not specified; E46 Unspecified protein-calorie malnutrition; J90 Pleural effusion, not elsewhere classified; J98.11 Atelectasis; Q39.9 Congenital malformation of esophagus, unspecified; R18.8 Other ascites; D64.9 Anemia, unspecified; E03.9 Hypothyroidism, unspecified; E87.6 Hypokalemia; K21.9 Gastro-esophageal reflux disease without esophagitis; K26.9 Duodenal ulcer, unspecified as acute or chronic, without hemorrhage or perforation; R62.7 Adult failure to thrive; Z51.5 Encounter for palliative care; Z68.21 Body mass index [BMI] 21.0-21.9, adult; K22.2 Esophageal obstruction; K44.9 Diaphragmatic hernia without obstruction or gangrene; K31.7 Polyp of stomach and duodenum; K31.89 Other diseases of stomach and duodenum
CPT/HCPCS: 88305; 32555; 49083; 51701; 51798; 70450; 71045; 71046; 71260; 72202; 74177; 74230; 76700; 80048; 80053; 81003; 81015; 82042; 82533; 82728; 82962; 83540; 83550; 83615; 83880; 83986; 84157; 84439; 84443; 85025; 85027; 85610; 86038; 86041; 87015; 87040; 87045; 87046; 87070; 87077; 87086; 87186; 87205; 87324; 87427; 87449; 87811; 88112; 88342; 89051; 92526; 92610; 92611; 93005; 93306; 93975; 96374; 97110; 97163; 97167; 99285; J3480; Q9967